=== PATIENT | male | born 1980 | race Caucasian/White ===

== ENCOUNTER 2018-06-12 08:24 | Inpatient (IN) ==
[2018-06-12] MEDS ORDERED: Sod Chloride 0.9% Inj 1,000 ML IV.CONT SCH (09:00)
--- NOTE | 2018-06-12 09:44 | XR ---
EXAM DATE: 06/12/2018 9:29 AM EDT AGE/SEX: 37 years / Male INDICATIONS: . Cough and nauseous. CLINICAL DATA: This is the patient's initial encounter. Patient reports that signs and symptoms have been present for 1 day and indicates a pain score of 0/10. MEDICAL/SURGICAL HISTORY: None. None. COMPARISON: No prior exams available for comparison. FINDINGS: A single AP view of the chest demonstrates the lungs to be symmetrically aerated without evidence of mass, infiltrate or effusion. The cardiomediastinal contours are unremarkable. Osseous structures a re intact. CONCLUSION: No acute intrathoracic disease. Electronically signed by: Sudhakar Valentine MD 06/12/2018 9:42 AM EDT
--- NOTE | 2018-06-12 10:07 | ED ---
HPI General Chief Complaint: Neuro Symptoms/Deficit Stated Complaint: Headache Time Seen by Provider: 06/12/18 08:55 Source: patient and family Mode of arrival: ambulatory Limitations: no limitations History of Present Illness HPI Narrative: The patient is a 37-year-old male with no significant medical history presenting with neurologic symptoms. Patient stated that yesterday at 1 PM he was having difficulty walking and he was stumbling around he had vision loss on his left eye for almost the whole day as well as inability to move his right upper extremity. Patient is a daily alcohol drinker states he was not intoxicated and he does not appear intoxicated today either. Visual symptoms resolved but since this morning she has been having left parietal headache no more dizziness. Also reports weakness on the right upper extremity. In addition he is stating that he is having problems with his speech but he cannot explain. No slurring. Onset (ago): day(s) (since yesterday around 1pm) Timing confirmed by: spouse Location: speech, right arm (weaknes) and other (Headche, Gait disturbance) History of same: No Quality: weak (Right UE) Relieving factors: none Context: sudden onset On Anticoagulants: No Associated symptoms: headaches, vertigo and weakness Treatments Prior to Arrival: none Related Data Home Medications Medication Instructions Recorded Confirmed No Known Home Medications 06/12/18 06/12/18 Allergies Allergy/AdvReac Type Severity Reaction Status Date / Time No Known Allergies Allergy Unverified 06/12/18 08:54 Review of Systems ROS Unobtainable All other systems reviewed negative except as stated in HPI Except as stated in HPI: all other systems reviewed are negative Neurologic Reports abnormal gait, Denies confusion, Reports dizziness, Reports headache(s) , Denies lack of coordination, Reports focal weakness, Reports loss of vision ( transient), Denies memory loss, Denies radicular pain, Denies seizure-like activity, Denies paresthesias and Denies disequilibrium [facility] Social History Social History Substance History: No History of Abuse Second Hand Smoke Exposure: No Smoking Status: Current some day smoker Tobacco Type: Cigarettes Packs Per Day: 0.5 (Patient reports smoking a few cigarettes a day, but only a few days a week, not daily.) Cigarettes Per Day: 10.0 How Often Do You Have a Drink Containing Alcohol: 4 or more times a week Recent Travel in [facility] within the Last 8 Weeks: No Recent Out of Country Travel within the Last 8 Weeks: No Immunization History Tetanus Immunization: Unsure Hx Influenza Vaccine This Season: No Exam HENMT Head: normocephalic and atraumatic Nose: no nasal discharge and no epistaxis Mouth: moist mucous membranes Eyes Sclera: normal sclerae Pupils: PERRL Neck Neck: trachea midline and no JVD Resp Effort & Inspection: no use of accessory muscles Auscultation: clear to auscultation bilaterally Cardio Rate: regular rate Rhythm: regular rhythm Heart Sounds: no murmurs GI Inspection: non-distended Palpation: soft, no hepatosplenomegaly and nontender Skin General: dry skin (warm) Neuro General: alert, awake, oriented x3, gait normal, moves all extremities, normal light touch, pain and propioception, CN's II-XI intact bilaterally, increase sensation to monofilament, absent sensation to monofilament, deep tendon reflexes 2+ bilaterally and not confused Cranial Nerves: CN's II-XI intact bilaterally, PERRL, EOM intact bilaterally and other Speech: speech normal Motor: no pronator drift, no movement abnormalities noted and strength abnormal (reduced on the RUE 4/5) Sensory Exam: no sensory deficits noted Coordination: [id number] test normal, [id number] test normal, Romberg test normal, tandem gait normal and Does not sway with eyes open Extrem General: normal to inspection, no clubbing, no cyanosis and no edema Psych Mood: congruent mood Affect: normal affect Judgment: judgment good Course Initial Documented Vital Signs Temperature 97.6 F 06/12/18 08:30 Pulse Rate 74 06/12/18 08:30 Respiratory Rate 16 06/12/18 08:30 Blood Pressure 139/86 06/12/18 08:30 Pulse Oximetry 96 06/12/18 08:30 Last Documented Vital Signs Temperature 97.8 F 06/15/18 04:00 Pulse Rate 69 06/15/18 04:00 Respiratory Rate 16 06/15/18 04:00 Blood Pressure 110/65 06/15/18 04:00 Pulse Oximetry 99 06/15/18 04:00 Critical Care Time Total Critical Care Time: 45 Attestation: Aggregate critical care time was 45 minutes. Time to perform other separately billable procedures was not included in the critical care time. My time did not include minutes spent treating any other patients simultaneously or on activities that did not directly contribute to the patient's treatment. The services I provided to this patient were to treat and/or prevent clinically significant deterioration that could result in: Permanent disability and I provided critical care services requiring my management, as noted below: Chart data review, documentation time, medication orders and management, vital sign assessments/reviewing monitor data, ordering and reviewing lab tests, ordering and interpreting/reviewing x-rays and diagnostic studies, care of the patient and discussion of the patient with the admitting physicians. NIH Stroke Scale NIHSS Time Completed NIHSS Time Completed: 08:58 NIH Stroke Scale Level of Consciousness: 0-Alert Orientation Questions: 0-Answers both correct Responds to Commands: 0-Both tasks correct Gaze Eye Movement: 0-Horizontal movement WNL Visual Long: 0-No visual field defect Facial Movement: 0-Normal Motor Functions Arm LEFT: 0-No drift Motor Functions Arm RIGHT: 0-No drift Motor Functions Leg LEFT: 0-No drift Motor Functions Leg RIGHT: 0-No drift Limb Ataxia: 0-No ataxia Sensory Loss: 0-No sensory loss Best Language: 0-Normal Articulation: 0-Normal Extinction or Inattention Sensory: 0-Absent Total: 0 Medical Decision Making MDM Narrative Medical decision making narrative: Patient with left IC a dissection started and heparin drip. Vascular surgery was consulted. No focal neurologic deficits at this time but he did have weakness of the right upper extremity and left visual loss yesterday. Otherwise labs unremarkable. More dynamically stable admitted for neurologic evaluation as well as vascular. Head MRI was also obtained and reveal several punctate areas of restricted diffusion throughout the left cerebral hemispheres suggestive of acute focal areas of infarction. Prominent bilateral ventricles for patient's age as well as demyelination likely ischemic. Lab Data Lab results reviewed: Yes I reviewed the patient's lab results. Result diagrams: 06/15/18 03:57 06/15/18 03:57 Lab Results 06/12/18 06/12/18 06/12/18 Range/Units 09:00 09:00 09:05 WBC (4.0-11.0) th/mm3 RBC (4.50-5.90) mil/mm3 Hgb (13.0-17.0) gm/dL Hct (39.0-51.0) % MCV (80.0-100.0) fL MCH (27.0-34.0) pg MCHC (32.0-36.0) % RDW (11.6-17.2) % Plt Count (150-450) th/mm3 MPV (7.0-11.0) fL PT 10.1 (9.8-11.6) sec INR 1.0 Ratio APTT 27.4 (24.3-30.1) sec Sodium 138 (136-145) meq/L Potassium 3.7 (3.5-5.1) meq/L Chloride 105 (98-107) meq/L Carbon Dioxide 26.9 (21.0-32.0) meq/L Anion Gap 6 (5-15) meq/L BUN 14 (7-18) mg/dL Creatinine 0.98 (0.60-1.30) mg/dL Estimated GFR 86 L (>89) mL/min POC Glucose (68-110) mg/dl Random Glucose 89 (74-106) mg/dL Hemoglobin A1c (4.3-6.0) % Calcium 8.9 (8.5-10.1) mg/dL Total Creatine Kinase 174 (39-308) U/L CK-MB (CK-2) 1.1 (0.5-3.6) ng/mL Troponin I Less than 0.02 L (0.02-0.05) ng/mL Triglycerides (42-150) mg/dL Cholesterol (120-200) mg/dL LDL Cholesterol, Calc (0-99) mg/dL HDL Cholesterol (40.0-60.0) mg/dL Cholesterol/HDL Ratio Ratio Blood Type O Positive Blood Type Recheck Required Antibody Screen Negative 06/12/18 06/12/18 06/12/18 Range/Units 14:42 14:42 16:57 WBC 7.7 (4.0-11.0) th/mm3 RBC 5.10 (4.50-5.90) mil/mm3 Hgb 14.7 (13.0-17.0) gm/dL Hct 43.8 (39.0-51.0) % MCV 86.0 (80.0-100.0) fL MCH 28.8 (27.0-34.0) pg MCHC 33.5 (32.0-36.0) % RDW 13.7 (11.6-17.2) % Plt Count 240 (150-450) th/mm3 MPV 8.5 (7.0-11.0) fL PT 10.8 (9.8-11.6) sec INR 1.1 Ratio APTT (24.3-30.1) sec Sodium (136-145) meq/L Potassium (3.5-5.1) meq/L Chloride (98-107) meq/L Carbon Dioxide (21.0-32.0) meq/L Anion Gap (5-15) meq/L BUN (7-18) mg/dL Creatinine (0.60-1.30) mg/dL Estimated GFR (>89) mL/min POC Glucose 74 (68-110) mg/dl Random Glucose (74-106) mg/dL Hemoglobin A1c (4.3-6.0) % Calcium (8.5-10.1) mg/dL Total Creatine Kinase (39-308) U/L CK-MB (CK-2) (0.5-3.6) ng/mL Troponin I (0.02-0.05) ng/mL Triglycerides (42-150) mg/dL Cholesterol (120-200) mg/dL LDL Cholesterol, Calc (0-99) mg/dL HDL Cholesterol (40.0-60.0) mg/dL Cholesterol/HDL Ratio Ratio Blood Type Blood Type Recheck Antibody Screen 06/12/18 06/12/18 06/13/18 Range/Units 21:10 21:16 03:12 WBC 7.2 (4.0-11.0) th/mm3 RBC 5.14 (4.50-5.90) mil/mm3 Hgb 14.7 (13.0-17.0) gm/dL Hct 43.6 (39.0-51.0) % MCV 84.8 (80.0-100.0) fL MCH 28.5 (27.0-34.0) pg MCHC 33.6 (32.0-36.0) % RDW 13.8 (11.6-17.2) % Plt Count 222 (150-450) th/mm3 MPV 8.0 (7.0-11.0) fL PT (9.8-11.6) sec INR Ratio APTT 43.7 H D (24.3-30.1) sec Sodium (136-145) meq/L Potassium (3.5-5.1) meq/L Chloride (98-107) meq/L Carbon Dioxide (21.0-32.0) meq/L Anion Gap (5-15) meq/L BUN (7-18) mg/dL Creatinine (0.60-1.30) mg/dL Estimated GFR (>89) mL/min POC Glucose 95 (68-110) mg/dl Random Glucose (74-106) mg/dL Hemoglobin A1c (4.3-6.0) % Calcium (8.5-10.1) mg/dL Total Creatine Kinase (39-308) U/L CK-MB (CK-2) (0.5-3.6) ng/mL Troponin I (0.02-0.05) ng/mL Triglycerides (42-150) mg/dL Cholesterol (120-200) mg/dL LDL Cholesterol, Calc (0-99) mg/dL HDL Cholesterol (40.0-60.0) mg/dL Cholesterol/HDL Ratio Ratio Blood Type Blood Type Recheck Antibody Screen 06/13/18 06/13/18 06/13/18 Range/Units 03:12 03:12 03:12 WBC (4.0-11.0) th/mm3 RBC (4.50-5.90) mil/mm3 Hgb (13.0-17.0) gm/dL Hct (39.0-51.0) % MCV (80.0-100.0) fL MCH (27.0-34.0) pg MCHC (32.0-36.0) % RDW (11.6-17.2) % Plt Count (150-450) th/mm3 MPV (7.0-11.0) fL PT 10.4 (9.8-11.6) sec INR 1.0 Ratio APTT 50.6 H (24.3-30.1) sec Sodium 139 (136-145) meq/L Potassium 4.0 (3.5-5.1) meq/L Chloride 104 (98-107) meq/L Carbon Dioxide 27.8 (21.0-32.0) meq/L Anion Gap 7 (5-15) meq/L BUN 11 (7-18) mg/dL Creatinine 0.93 (0.60-1.30) mg/dL Estimated GFR Greater than 89 (>89) mL/min POC Glucose (68-110) mg/dl Random Glucose 97 (74-106) mg/dL Hemoglobin A1c 5.5 (4.3-6.0) % Calcium 8.6 (8.5-10.1) mg/dL Total Creatine Kinase (39-308) U/L CK-MB (CK-2) (0.5-3.6) ng/mL Troponin I (0.02-0.05) ng/mL Triglycerides 113 (42-150) mg/dL Cholesterol 189 (120-200) mg/dL LDL Cholesterol, Calc 105 H (0-99) mg/dL HDL Cholesterol 61.6 H (40.0-60.0) mg/dL Cholesterol/HDL Ratio 3.06 Ratio Blood Type Blood Type Recheck Antibody Screen 06/13/18 06/13/18 06/13/18 Range/Units 07:28 11:14 16:55 WBC (4.0-11.0) th/mm3 RBC (4.50-5.90) mil/mm3 Hgb (13.0-17.0) gm/dL Hct (39.0-51.0) % MCV (80.0-100.0) fL MCH (27.0-34.0) pg MCHC (32.0-36.0) % RDW (11.6-17.2) % Plt Count (150-450) th/mm3 MPV (7.0-11.0) fL PT (9.8-11.6) sec INR Ratio APTT (24.3-30.1) sec Sodium (136-145) meq/L Potassium (3.5-5.1) meq/L Chloride (98-107) meq/L Carbon Dioxide (21.0-32.0) meq/L Anion Gap (5-15) meq/L BUN (7-18) mg/dL Creatinine (0.60-1.30) mg/dL Estimated GFR (>89) mL/min POC Glucose 92 85 86 (68-110) mg/dl Random Glucose (74-106) mg/dL Hemoglobin A1c (4.3-6.0) % Calcium (8.5-10.1) mg/dL Total Creatine Kinase (39-308) U/L CK-MB (CK-2) (0.5-3.6) ng/mL Troponin I (0.02-0.05) ng/mL Triglycerides (42-150) mg/dL Cholesterol (120-200) mg/dL LDL Cholesterol, Calc (0-99) mg/dL HDL Cholesterol (40.0-60.0) mg/dL Cholesterol/HDL Ratio Ratio Blood Type Blood Type Recheck Antibody Screen 06/13/18 06/14/18 06/14/18 Range/Units 19:54 05:54 05:54 WBC 7.0 (4.0-11.0) th/mm3 RBC 5.32 (4.50-5.90) mil/mm3 Hgb 15.2 (13.0-17.0) gm/dL Hct 45.5 (39.0-51.0) % MCV 85.5 (80.0-100.0) fL MCH 28.5 (27.0-34.0) pg MCHC 33.3 (32.0-36.0) % RDW 14.2 (11.6-17.2) % Plt Count 241 (150-450) th/mm3 MPV 8.6 (7.0-11.0) fL PT (9.8-11.6) sec INR Ratio APTT (24.3-30.1) sec Sodium 141 (136-145) meq/L Potassium 3.4 L (3.5-5.1) meq/L Chloride 104 (98-107) meq/L Carbon Dioxide 25.9 (21.0-32.0) meq/L Anion Gap 11 (5-15) meq/L BUN 12 (7-18) mg/dL Creatinine 1.04 (0.60-1.30) mg/dL Estimated GFR 80 L (>89) mL/min POC Glucose 88 (68-110) mg/dl Random Glucose 90 (74-106) mg/dL Hemoglobin A1c (4.3-6.0) % Calcium 9.1 (8.5-10.1) mg/dL Total Creatine Kinase (39-308) U/L CK-MB (CK-2) (0.5-3.6) ng/mL Troponin I (0.02-0.05) ng/mL Triglycerides (42-150) mg/dL Cholesterol (120-200) mg/dL LDL Cholesterol, Calc (0-99) mg/dL HDL Cholesterol (40.0-60.0) mg/dL Cholesterol/HDL Ratio Ratio Blood Type Blood Type Recheck Antibody Screen 06/14/18 06/14/18 06/14/18 Range/Units 05:54 07:58 20:27 WBC (4.0-11.0) th/mm3 RBC (4.50-5.90) mil/mm3 Hgb (13.0-17.0) gm/dL Hct (39.0-51.0) % MCV (80.0-100.0) fL MCH (27.0-34.0) pg MCHC (32.0-36.0) % RDW (11.6-17.2) % Plt Count (150-450) th/mm3 MPV (7.0-11.0) fL PT 11.4 (9.8-11.6) sec INR 1.1 Ratio APTT 49.5 H (24.3-30.1) sec Sodium (136-145) meq/L Potassium (3.5-5.1) meq/L Chloride (98-107) meq/L Carbon Dioxide (21.0-32.0) meq/L Anion Gap (5-15) meq/L BUN (7-18) mg/dL Creatinine (0.60-1.30) mg/dL Estimated GFR (>89) mL/min POC Glucose 97 122 H (68-110) mg/dl Random Glucose (74-106) mg/dL Hemoglobin A1c (4.3-6.0) % Calcium (8.5-10.1) mg/dL Total Creatine Kinase (39-308) U/L CK-MB (CK-2) (0.5-3.6) ng/mL Troponin I (0.02-0.05) ng/mL Triglycerides (42-150) mg/dL Cholesterol (120-200) mg/dL LDL Cholesterol, Calc (0-99) mg/dL HDL Cholesterol (40.0-60.0) mg/dL Cholesterol/HDL Ratio Ratio Blood Type Blood Type Recheck Antibody Screen 06/15/18 06/15/18 06/15/18 Range/Units 03:57 03:57 03:57 WBC 7.4 (4.0-11.0) th/mm3 RBC 5.14 (4.50-5.90) mil/mm3 Hgb 14.6 (13.0-17.0) gm/dL Hct 43.8 (39.0-51.0) % MCV 85.2 (80.0-100.0) fL MCH 28.4 (27.0-34.0) pg MCHC 33.3 (32.0-36.0) % RDW 13.8 (11.6-17.2) % Plt Count 249 (150-450) th/mm3 MPV 8.1 (7.0-11.0) fL PT 12.1 H (9.8-11.6) sec INR 1.2 Ratio APTT 48.9 H (24.3-30.1) sec Sodium 141 (136-145) meq/L Potassium 3.5 (3.5-5.1) meq/L Chloride 105 (98-107) meq/L Carbon Dioxide 26.3 (21.0-32.0) meq/L Anion Gap 10 (5-15) meq/L BUN 12 (7-18) mg/dL Creatinine 0.96 (0.60-1.30) mg/dL Estimated GFR 88 L (>89) mL/min POC Glucose (68-110) mg/dl Random Glucose 88 (74-106) mg/dL Hemoglobin A1c (4.3-6.0) % Calcium 8.8 (8.5-10.1) mg/dL Total Creatine Kinase (39-308) U/L CK-MB (CK-2) (0.5-3.6) ng/mL Troponin I (0.02-0.05) ng/mL Triglycerides (42-150) mg/dL Cholesterol (120-200) mg/dL LDL Cholesterol, Calc (0-99) mg/dL HDL Cholesterol (40.0-60.0) mg/dL Cholesterol/HDL Ratio Ratio Blood Type Blood Type Recheck Antibody Screen Imaging Data Radiologist's impression: Chest X-Ray 06/12/18 08:55 CONCLUSION: No acute intrathoracic disease. Head CT 06/12/18 08:55 CONCLUSION: 1. Mild diffuse ventriculomegaly out of proportion to brain density. Head CTA 06/12/18 08:55 CONCLUSION: 1. 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 2. Otherwise unremarkable CTA of the brain. Neck CTA 06/12/18 08:57 CONCLUSION: 1. There is a dissection involving the mid portion of the left internal carotid artery with a subintimal hematoma causing compression of the lumen for approximately 2 cm in length. There is reconstitution of the distal left internal carotid artery just below the base of the skull. 2. The rest the examination is within normal limits for patient's age. Head MRI 06/12/18 12:17 CONCLUSION: 1. There are several punctate areas of restricted diffusion throughout the left cerebral hemisphere characteristic for focal areas of acute infarction. 2. The ventricles are prominent bilaterally. There is also evidence of ischemic demyelinization bilaterally. ECG Data Attestation: I personally reviewed and interpreted this ECG as follows: Interpretation: EKG obtained at 8:59 AM revealed normal sinus rhythm with ventricular rate of 78 bpm [place] and QT intervals within normal limits normal axis Discharge Plan Discharge Disposition Patient Disposition: 30 Still Patient Discharge Condition Condition: Critical Discharge Details Diagnosis: Internal carotid artery dissection, Acute cerebrovascular accident Physicians Team ED Provider: Jeremie Singh Primary Care Provider: Primary Care Farzana Lopez Attending Provider: Kristin Boyd Other Providers: Kait Laughlin ; Maynor Vinson ; Gene Luz Discharge Interventions Interventions: ED Discharge Assessment Last Done: 06/12/18 15:58 Vital Signs Last Done: 06/12/18 12:35 Status ED Status: Left Department Discharge Information Discharge Date/Time: 06/12/18 15:50
[2018-06-12 10:09] LABS: Activated Partial Thrombo Time 27.4 sec (24.3-30.1); Prothrombin Time 10.1 sec (9.8-11.6)
[2018-06-12 10:20] LABS: Anion Gap 6 meq/L (5-15); Blood Urea Nitrogen 14 mg/dL (7-18); Calcium 8.9 mg/dL (8.5-10.1); Carbon Dioxide 26.9 meq/L (21.0-32.0); Chloride 105 meq/L (98-107); Glomerular Filtration Rate 86 mL/min (>89); Glucose,Random 89 mg/dL (74-106); Potassium 3.7 meq/L (3.5-5.1); Sodium 138 meq/L (136-145)
[2018-06-12 10:24] LABS: Creatine Kinase 174 U/L (39-308)
[2018-06-12 10:36] LABS: Creatine Kinase MB 1.1 ng/mL (0.5-3.6)
--- NOTE | 2018-06-12 10:58 | CT ---
EXAM DATE: 06/12/2018 10:50 AM EDT AGE/SEX: 37 years / Male INDICATIONS: Right side weakness and facial droop, slurred speech. CLINICAL DATA: This is the patient's initial encounter. Patient reports that signs and symptoms have been present for 1 day and indicates a pain score of 3/10. MEDICAL/SURGICAL HISTORY: None. None. RADIATION DOSE: 56.35 CTDI (mGy) COMPARISON: No prior exams available for comparison. TECHNIQUE: CT of the head without contrast. Using automated exposure control and adjustment of the mA and/or kV according to patient size, radiation dose was kept as low as reasonably achievable to ob tain optimal diagnostic quality images. DICOM format image data is available electronically for revi ew and comparison. FINDINGS: Cerebrum: Diffuse ventriculomegaly out of proportion to brain density. No evidence of midline shift, mass lesion, hemorrhage or acute infarction. No extraaxial fluid collections are seen. Posterior Fossa: The cerebellum and brainstem are intact. The 4th ventricle is midline. The cerebe llopontine angle is unremarkable. Extracranial: The visualized portion of the orbits is intact. Skull: The calvaria is intact. No evidence of skull fracture. CONCLUSION: 1. Mild diffuse ventriculomegaly out of proportion to brain density. Electronically signed by: Gene Banks MD 06/12/2018 10:56 AM EDT
--- NOTE | 2018-06-12 11:43 | CT ---
EXAM DATE: 06/12/2018 11:34 AM EDT AGE/SEX: 37 years / Male INDICATIONS: Right side weakness and facial droop, slurred speech. CLINICAL DATA: This is the patient's initial encounter. Patient reports that signs and symptoms have been present for 1 day and indicates a pain score of 4/10. MEDICAL/SURGICAL HISTORY: None. None. RADIATION DOSE: 10.51 CTDI (mGy) ; Combined studies COMPARISON: [facility] – [place], [place] HEAD W/O CONTRAST, 06/12/2018. . TECHNIQUE: Volumetric scanning was performed using a multi-row detector CT scanner during bolus infu cassandra of 75 ml Omnipaque 350 (iohexol) nonionic water-soluble contrast as a cumulative dose for multi ple exams. The data was post processed with a variety of visualization algorithms including full vo lume maximum intensity projection, multi-planar sliding thin slab reformation, curved planar reformat ion, and surface rendering techniques. Using automated exposure control and adjustment of the mA and /or kV according to patient size, radiation dose was kept as low as reasonably achievable to obtain o ptimal diagnostic quality images. DICOM format image data is available electronically for review and comparison. FINDINGS: There is excellent visualization of the major intracranial arteries out to the second-order branch ve ssels. There is no evidence for aneurysm, vessel truncation or stenosis, and no evidence for vascula r malformation. 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 CONCLUSION: 1. 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 2. Otherwise unremarkable CTA of the brain. Electronically signed by: Sudhakar Valentine MD 06/12/2018 11:42 AM EDT
[2018-06-12] MEDS ORDERED: Heparin 10,000 UNITS/10 ML Vial (for IV use) IV.PUSH STA (11:57)
--- NOTE | 2018-06-12 11:58 | CT ---
EXAM DATE: 06/12/2018 11:15 AM EDT AGE/SEX: 37 years / Male INDICATIONS: Right side weakness and facial droop, slurred speech. CLINICAL DATA: This is the patient's initial encounter. Patient reports that signs and symptoms have been present for 1 day and indicates a pain score of 4/10. MEDICAL/SURGICAL HISTORY: None. None. RADIATION DOSE: 10.51 CTDI (mGy) ; Combined studies COMPARISON: [facility], CTA HEAD W CONTRAST W 3D, 06/12/2018. . TECHNIQUE: Volumetric scanning was performed using a multirow detector CT scanner during bolus infus ion of 75 ml Omnipaque 350 (iohexol) nonionic water-soluble contrast as a cumulative dose for multip le exams. The data was postprocessed with a variety of visualization algorithms including full-volu me maximum intensity projection, multiplanar sliding thin-slab reformation, curved-planar reformation , and surface-rendering techniques. Using automated exposure control and adjustment of the mA and/or kV according to patient size, radiation dose was kept as low as reasonably achievable to obtain opti mal diagnostic quality images. DICOM format image data is available electronically for review and co mparison. FINDINGS: Aortic Arch: There is a three-vessel origin of the great vessels from the aorta. No evidence of ost ial narrowing Right Carotid: The common carotid artery is intact. The carotid bulb has a normal configuration wit hout ulceration or narrowing. The internal carotid artery lumen is smooth without stenosis. The ext ernal carotid artery is intact. Left Carotid: The common carotid artery is intact. The carotid bulb has a normal configuration with out ulceration or narrowing.. The proximal left internal carotid artery is patent. However, there is an intimal dissection involving the midportion of the left internal carotid artery for approximately 2 cm. There is a subintimal hematoma causing compression of the lumen. There is distal flow in a calli nstituted distal left internal carotid artery just before the base of the skull. Vertebrals: The vertebral arteries have a symmetric diameter. No stenotic lesions are seen. The findings were called immediately by telephone to the ER physician in the C Pod. Elevated flow velocities and ICA/CCA ratios have been found to correlate with increased degrees of ve ssel stenosis, calculated as percentage of diameter relative to a normal segment of distal ICA/CCA. CONCLUSION: 1. There is a dissection involving the mid portion of the left internal carotid artery with a subint imal hematoma causing compression of the lumen for approximately 2 cm in length. There is reconstitut ion of the distal left internal carotid artery just below the base of the skull. 2. The rest the examination is within normal limits for patient's age. Electronically signed by: Sudhakar Valentine MD 06/12/2018 11:56 AM EDT
--- NOTE | 2018-06-12 13:21 | MR ---
EXAM DATE: 06/12/2018 1:13 PM EDT AGE/SEX: 37 years / Male INDICATIONS: CVA. Left vision loss. Right arm weakness. CLINICAL DATA: This is the patient's initial encounter. Patient reports that signs and symptoms have been present for 1 day and indicates a pain score of 0/10. MEDICAL/SURGICAL HISTORY: None. None. COMPARISON: [facility] [place], CT HEAD W/O CONTRAST, 06/12/2018. . TECHNIQUE: Multiplanar, multisequence examination of the brain was performed without and with 8 ml Ga davist (gadobutrol) contrast as a single exam dose. FINDINGS: Cerebrum: The ventricles are prominent for age. No evidence of midline shift, mass lesion, hemorrha ge.. No extraaxial fluid collections are seen. The pituitary gland and suprasellar cistern are norm al in configuration. White Matter: There are some high signal spots in the white matter tracts bilaterally. Posterior Fossa: The cerebellum and brainstem are intact. The 4th ventricle is midline. The cerebel lopontine angle is unremarkable. The cerebellar tonsils are normal in position. Diffusion Imaging: Several punctate areas of increased signal consistent with restricted diffusion a re noted throughout the left cerebral hemisphere. The right cerebral hemisphere on the diffusion-weig hted images are unremarkable. Extracranial: The visualized portions of the orbits and paranasal sinuses are unremarkable. Post Contrast: No abnormal areas of parenchymal or dural enhancement. No evidence of blood-brain ba rrier breakdown. No enhancing mass occupying lesions. CONCLUSION: 1. There are several punctate areas of restricted diffusion throughout the left cerebral hemisphere characteristic for focal areas of acute infarction. 2. The ventricles are prominent bilaterally. There is also evidence of ischemic demyelinization bila terally. Electronically signed by: Sudhakar Valentine MD 06/12/2018 1:20 PM EDT
[2018-06-12] MEDS ORDERED: Sodium Phosphate Inj 30 MMOL in Sodium Chlor 0.9% Inj 250 ML IV.SIG PRN (13:40)
[2018-06-12] MEDS ORDERED: Labetalol HCl Inj 100 MG/20 ML Vial IV.PUSH PRN (13:40)
[2018-06-12] MEDS ORDERED: Potassium Phosphate 500 MG Soluble Tablet PO PRN ×2 (13:40)
[2018-06-12] MEDS ORDERED: Magnesium Oxide 400 MG Tablet PO PRN (13:40)
[2018-06-12] MEDS ORDERED: Magnesium Sulfate Inj 4 GM in Sodium Chlor 0.9% Inj 92 ML IV.SIG PRN (13:40)
[2018-06-12] MEDS ORDERED: Potassium Chloride 25 MEQ Effervescent Tablet PO PRN (13:40)
[2018-06-12] MEDS ORDERED: Potassium Chlor 20 mEq Premix 20 MEQ/100 ML PIGGYBACK IV.SIG PRN ×2 (13:40)
[2018-06-12] MEDS ORDERED: Bisacodyl 10 MG Supp RECTAL PRN (13:40)
[2018-06-12] MEDS ORDERED: Potassium Chlor 40 mEq Premix 40 MEQ/100 ML PIGGYBACK IV.SIG PRN ×2 (13:40)
[2018-06-12] MEDS ORDERED: Dextrose 50% in Water 50 ML Vial IV.PUSH PRN (13:40)
[2018-06-12] MEDS ORDERED: Magnesium Sulfate Inj 2 GM in Sodium Chlor 0.9% Inj 96 ML IV.SIG PRN (13:40)
[2018-06-12] MEDS ORDERED: Potassium Phosphate Inj 30 MMOL in Sodium Chlor 0.9% Inj 250 ML IV.SIG PRN (13:40)
--- NOTE | 2018-06-12 13:47 | P.HPCC ---
History of Present Illness Service: Critical Care Medicine Primary Care Physician: No Primary Care Physician Chief Complaint: Vision changes History of Present Illness: This is a 37-year-old male with no past medical history who was traveling on vacation down from [place] when yesterday he had sudden onset visual field deficits and could not see out of his left eye. He does state that approximately 2 days earlier he had significant alcohol intake with friends, and thought this was related to a hangover. He drinks 6-8 glasses of water and felt that his vision changes improved. Today he had persistent intermittent weakness over his right side of his body and was concerned so he came in for evaluation. CTA head neck demonstrates a left-sided spontaneous internal carotid artery dissection, and MRI brain demonstrates multiple tiny embolic appearing infarcts in the left cortical hemisphere. Currently, the patient denies any symptoms. He states his vision changes have completely resolved. He denies any weakness, sensory changes, imbalance, dizziness, syncope. He has never had anything like this. He denies any family history of stroke. Review of systems is otherwise unremarkable. Of note, he does not work out or lift weights, has not had any recent trauma to the neck or had any other strenuous activity. Inpatient Certification: I certify that the inpatient services were ordered in accordance with Medicare regulations governing the order. This includes certification that hospital inpatient services are reasonable and necessary and in the case of services not specified as inpatient-only under 42 CFR 419.22(n), that they are appropriately provided as inpatient services in accordance to with the 2-midnight benchmark under 43 CFR 412.3(e) Estimated Total Length of Stay (Days): 7 Plans for Post Hospital Care: Not yet determined Review of Systems All other systems reviewed negative except as stated in HPI [facility] - History History Provided By: Patient - Medical / Surgical Hx Neg / Unobtainable Medical Problems Denied: Yes Surgical History: No Previous Surgery - Tobacco History Second Hand Smoke Exposure: No Tobacco Use In Past 30 Days: Yes Smoking Status: Current some day smoker Tobacco Type: Cigarettes Packs Per Day: 0.5 (Patient reports smoking a few cigarettes a day, but only a few days a week, not daily.) - Alcohol History How Often Do You Have a Drink Containing Alcohol: 4 or more times a week - Substance Use History Substance History: No History of Abuse - Travel History Recent Travel in the [facility] Within the Last 8 Weeks: No Recent Travel Out of the Country Within the Last 8 Weeks: No - Immunization History Tetanus Immunization: Unsure Hx Influenza Vaccine This Season: No Medications and Allergies Active Medications: Active Medications Sodium Chloride (Ns Inj) 1,000 mls @ 70 mls/hr IV.CONT .[id number] ILEANA Stop: 06/12/18 23:17 Last Admin: 06/12/18 09:10 Dose: 70 mls/hr Heparin Sodium/Dextrose (Heparin/D5w 25,000 U/250 Ml) 25,000 unit in 250 mls @ 10 mls/hr IV.CONT TITRATE PRN; Protocol PRN Reason: Per Protocol Sodium Chloride (Ns Flush) 2 ml IV.FLUSH PRN PRN PRN Reason: FLUSH AFTER USING IV ACCESS Allergies Allergy/AdvReac Type Severity Reaction Status Date / Time No Known Allergies Allergy Unverified 06/12/18 08:54 Home Medications Medication Instructions Recorded Confirmed Type No Known Home Medications 06/12/18 06/12/18 History Results - Labs CBC & Chem 7: 06/12/18 14:42 06/12/18 09:00 Labs: BMP 06/12/18 09:00 Sodium 138 Potassium 3.7 Chloride 105 Carbon Dioxide 26.9 BUN 14 Creatinine 0.98 Calcium 8.9 Cardiac Enzymes 06/12/18 Range/Units 09:00 Total Creatine Kinase 174 (39-308) U/L CK-MB (CK-2) 1.1 (0.5-3.6) ng/mL Troponin I Less than 0.02 L (0.02-0.05) ng/mL - Imaging Impressions Chest X-Ray 06/12/18 08:55 CONCLUSION: No acute intrathoracic disease. Head CT 06/12/18 08:55 CONCLUSION: 1. Mild diffuse ventriculomegaly out of proportion to brain density. Head CTA 06/12/18 08:55 CONCLUSION: 1. 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 2. Otherwise unremarkable CTA of the brain. Neck CTA 06/12/18 08:57 CONCLUSION: 1. There is a dissection involving the mid portion of the left internal carotid artery with a subintimal hematoma causing compression of the lumen for approximately 2 cm in length. There is reconstitution of the distal left internal carotid artery just below the base of the skull. 2. The rest the examination is within normal limits for patient's age. Head MRI 06/12/18 12:17 CONCLUSION: 1. There are several punctate areas of restricted diffusion throughout the left cerebral hemisphere characteristic for focal areas of acute infarction. 2. The ventricles are prominent bilaterally. There is also evidence of ischemic demyelinization bilaterally. Exam Vital signs: Vital Signs 06/12/18 08:30 06/12/18 08:52 06/12/18 09:01 Temperature 36.4 C Pulse Rate 74 120 H Respiratory Rate 16 18 Blood Pressure 139/86 163/100 H Pulse Oximetry 96 95 96 06/12/18 11:57 06/12/18 12:35 Temperature Pulse Rate 87 Respiratory Rate 18 Blood Pressure 130/76 Pulse Oximetry 97 96 Intake & Output 06/11/18 06/12/18 06/12/18 18:59 06:59 18:59 Weight 81.647 kg Narrative: GENERAL: Young male, sitting in bed, no acute distress HEENT: Normocephalic. Atraumatic. Pupils equal, round, reactive, conjugate. Mucous membranes are moist NECK: Trachea is midline. There is no JVD. No evidence of trauma or bruising, ecchymosis to the neck. CHEST: Equal chest rise. Unlabored. Room air. CARDIOVASCULAR: Normal rate. Regular rhythm. Sinus. Systolic blood pressure 132 on my evaluation ABDOMEN: Soft, nontender, nondistended. No guarding. MUSCULOSKELETAL: Pulses 2+. No peripheral edema. NEUROLOGICAL: RASS 0. GCS 15. Follows commands in all 4 extremities. Muscular skeletal strength 5/5 in all 4 extremities. Sensation grossly intact. Cranial nerves II through XII grossly intact. Pupils equal, round, reactive to light and accommodation. Extraocular muscles intact. Visual field grossly intact. Caprini VTE Risk Assessment Caprini VTE Risk Assessment: Moderate/High Risk (score >= 2) Caprini Risk Assessment Model: Point Value = 1 Point Value = 2 Point Value = 3 Point Value = 5 Age 41-60 Minor surgery BMI > 25 kg/m2 Swollen legs Varicose veins or History of unexplained or recurrent spontaneous Oral contraceptives or hormone replacement Sepsis (< 1 month) Serious lung disease, including pneumonia (< 1 month) Abnormal pulmonary function Acute myocardial infarction Congestive heart failure (< 1 month) History of inflammatory bowel disease Medical patient at bed rest Age 61-74 Arthroscopic surgery Major open surgery (> 45 min) Laparoscopic surgery (> 45 min) Malignancy Confined to bed (> 72 hours) Immobilizing plaster cast Central venous access Age >= 75 History of VTE Family history of VTE Factor V Leiden Prothrombin [id number] Lupus anticoagulant Anticardiolipin antibodies Elevated serum homocysteine Heparin-induced thrombocytopenia Other congenital or acquired thrombophilia Stroke (< 1 month) Elective arthroplasty Hip, pelvis, or leg fracture Acute spinal cord injury (< 1 month) Prophylaxis Regimen: Total Risk Factor Score Risk Level Prophylaxis Regimen 0-1 Low Early ambulation 2 Moderate Order ONE of the following: *Sequential Compression Device (SCD) *Heparin 5000 units SQ BID 3-4 Higher Order ONE of the following medications: *Heparin 5000 units SQ TID *Enoxaparin/Lovenox 40 mg SQ daily (WT < 150 kg, CrCl > 30 mL/min) *Enoxaparin/Lovenox 30 mg SQ daily (WT < 150 kg, CrCl > 10-29 mL/min) *Enoxaparin/Lovenox 30 mg SQ BID (WT < 150 kg, CrCl > 30 mL/min) AND/OR *Sequential Compression Device (SCD) 5 or more Highest Order ONE of the following medications: *Heparin 5000 units SQ TID (Preferred with Epidurals) *Enoxaparin/Lovenox 40 mg SQ daily (WT < 150 kg, CrCl > 30 mL/min) *Enoxaparin/Lovenox 30 mg SQ daily (WT < 150 kg, CrCl > 10-29 mL/min) *Enoxaparin/Lovenox 30 mg SQ BID (WT < 150 kg, CrCl > 30 mL/min) AND *Sequential Compression Device (SCD) Assessment and Plan - Assessment and Plan Plan: Assessment: 37-year-old male with an unremarkable past medical history, with risk factors positive for tobacco use, who presents with 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 Admit to ICU for very close monitoring. He is a very high risk for further strokes. We will anticoagulate. Acute spontaneous left ICA dissection - heparin drip - vascular surgery consultation to follow along, but non-operative management is recommended. - frequent neuro checks - goal sbp < 140 - prn labetalol - start coumadin today per Dr. Pryor. Acute CVA - 2d echo - stroke navigator consult - neurology consult - lipids - a1c -PT/OT/ST - advance diet after bedside swallow eval - anticoagulation - mivf admit to ICU for close monitoring. pepcid SCDs
[2018-06-12] MEDS: Heparin Drip 25,000 UNIT/250 ML BAG IV.CONT PRN (13:59)
--- NOTE | 2018-06-12 14:32 | ECG ---
Date Performed: 06/12/2018 Time Performed: 08:59:43 PTAGE: 37 years EKG: Sinus rhythm WITH SINUS ARRHYTHMIA NORMAL ECG NO PREVIOUS TRACING DOCTOR: Raffi Kaur Interpretating Date/Time 06/12/2018 14:32:15
[2018-06-12] MEDS ORDERED: Gadobutrol PF 10 MMOL/10 ML Vial (for RAD) IV.SIG ONE (15:40)
[2018-06-12 15:56] LABS: Hematocrit 43.8 % (39.0-51.0); Hemoglobin 14.7 gm/dL (13.0-17.0); Mean Corpuscular HGB Conc 33.5 % (32.0-36.0); Mean Corpuscular Hemoglobin 28.8 pg (27.0-34.0); Mean Platelet Volume 8.5 fL (7.0-11.0); Platelet Count 240 th/mm3 (150-450); Red Cell Distribution Width 13.7 % (11.6-17.2); White Blood Count 7.7 th/mm3 (4.0-11.0)
[2018-06-12 16:03] LABS: INR 1.1 Ratio; Prothrombin Time 10.8 sec (9.8-11.6)
--- NOTE | 2018-06-12 16:43 | ECHRPT ---
Indication: CVA/TIA CONCLUSIONS The left ventricular systolic function is normal with an estimated ejection fraction in the range of 60-65%. Trace mitral valve regurgitation. There is trace tricuspid valve regurgitation. BP: / HR: Rhythm: Sinus MEASUREMENTS (Male / Female) Normal Values Technical Quality:Good 2D ECHO LV Diastolic Diameter PLAX 4.7 cm 4.2 - 5.9 / 3.9 - 5.3 cm LV Systolic Diameter PLAX 3.2 cm IVS Diastolic Thickness 0.9 cm 0.6 - 1.0 / 0.6 - 0.9 cm LVPW Diastolic Thickness 0.9 cm 0.6 - 1.0 / 0.6 - 0.9 cm LV Relative Wall Thickness 0.4 RV Internal Dim ED PLAX 2.8 cm LVOT Diameter 2.0 cm LA Systolic Diameter LX 3.4 cm 3.0 - 4.0 / 2.7 - 3.8 cm LV Ejection Fraction MOD 4C 63.8 % LV Ejection Fraction 4C AL 65.9 % M-MODE Aortic Root Diameter MM 2.5 cm AV Cusp Separation MM 1.9 cm DOPPLER AV Peak Velocity 132.0 cm/s AV Peak Gradient 7.0 mmHg LVOT Peak Velocity 119.0 cm/s LVOT Peak Gradient 5.7 mmHg AV Area Cont Eq pk 2.8 cm MV Area PHT 3.7 cm Mitral E Point Velocity 71.6 cm/s Mitral A Point Velocity 47.4 cm/s Mitral E to A Ratio 1.5 LV E' Lateral Velocity 6.4 cm/s Mitral E to LV E' Lateral Ratio 11.1 LV E' Septal Velocity 7.3 cm/s Mitral E to LV E' Septal Ratio 9.8 TR Peak Velocity 194.0 cm/s TR Peak Gradient 15.1 mmHg Right Atrial Pressure 10.0 mmHg Pulmonary Artery Systolic Pressu 25.1 mmHg Right Ventricular Systolic Press 25.1 mmHg PV Peak Velocity 115.0 cm/s PV Peak Gradient 5.3 mmHg FINDINGS LEFT VENTRICLE The left ventricular systolic function is normal with an estimated ejection fraction in the range of 60-65%. Normal left ventricular size. Wall thickness is normal. No regional wall motion abnormalities are present. RIGHT VENTRICLE The right ventricular size is normal. The right ventricular systoilc function is normal. LEFT ATRIUM The left atrial size is normal. RIGHT ATRIUM The right atrial size is normal. ATRIAL SEPTUM Normal atrial septal thickness. AORTA The aortic root and proximal ascending aorta are normal in size on limited imaging. MITRAL VALVE Structurally normal mitral valve. Trace mitral valve regurgitation. No mitral valve stenosis. AORTIC VALVE Grossly normal No aortic valve regurgitation. No aortic valve stenosis. TRICUSPID VALVE Structurally normal tricuspid valve. There is trace tricuspid valve regurgitation. The estimated pulmonary arterial pressure is 25.1 mmHg. PULMONARY VALVE The pulmonary valve is not well visualized. PERICARDIUM No pericardial effusion. Yamil Hylton DO (Electronically Signed) Final Date:12 June 2018 16:42
[2018-06-12] MEDS ORDERED: Insulin NovoLOG Aspart Correctional Sugar Inj SQ SCH (17:00)
[2018-06-12] MEDS: Insulin NovoLOG Aspart Correctional Sugar Inj SQ SCH ×2 (17:08→21:17)
[2018-06-12] MEDS ORDERED: Warfarin Consult Pharmacy 1 EACH OTHER SCH (17:34)
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
[2018-06-12] MEDS: Senna/Docusate Sodium 8.6/50 MG Tablet PO SCH (21:12)
[2018-06-12] MEDS: Famotidine 20 MG Tablet PO SCH (21:13)
[2018-06-13 03:35] LABS: Hematocrit 43.6 % (39.0-51.0); Hemoglobin 14.7 gm/dL (13.0-17.0); Mean Corpuscular HGB Conc 33.6 % (32.0-36.0); Mean Corpuscular Hemoglobin 28.5 pg (27.0-34.0); Mean Corpuscular Volume 84.8 fL (80.0-100.0); Platelet Count 222 th/mm3 (150-450); Red Blood Count 5.14 mil/mm3 (4.50-5.90); Red Cell Distribution Width 13.8 % (11.6-17.2); White Blood Count 7.2 th/mm3 (4.0-11.0)
[2018-06-13 03:41] LABS: Activated Partial Thrombo Time 50.6 sec (24.3-30.1); Prothrombin Time 10.4 sec (9.8-11.6)
[2018-06-13] MEDS ORDERED: Chlorhexidine Gluconate 2% 1 Pack (2 Cloths) TOPICAL PRN (04:00)
[2018-06-13 04:13] LABS: Anion Gap 7 meq/L (5-15); Blood Urea Nitrogen 11 mg/dL (7-18); Calcium 8.6 mg/dL (8.5-10.1); Carbon Dioxide 27.8 meq/L (21.0-32.0); Chloride 104 meq/L (98-107); Glomerular Filtration Rate Greater Than 89 mL/min (>89); Glucose,Random 97 mg/dL (74-106); Sodium 139 meq/L (136-145)
[2018-06-13 04:14] LABS: Cholesterol 189 mg/dL (120-200)
[2018-06-13 04:16] LABS: Chol/HDL Ratio 3.06 Ratio; HDL Cholesterol 61.6 mg/dL (40.0-60.0); LDL Cholesterol,Calculated 105 mg/dL (0-99); Triglycerides 113 mg/dL (42-150)
[2018-06-13] MEDS: Chlorhexidine Gluconate 2% 1 Pack (2 Cloths) TOPICAL SCH (05:59)
[2018-06-13] MEDS: Insulin NovoLOG Aspart Correctional Sugar Inj SQ SCH ×4 (07:39→21:07)
--- NOTE | 2018-06-13 08:04 | P.PNNEU ---
Subjective Subjective Comments: No acute events reported Active Medications: Active Medications Al Hydroxide/Mg Hydroxide (Milk Of Roxann Liq) 30 ml PO Q12H PRN PRN Reason: Mild Constipation Albuterol (Duoneb Neb (Prn)) 1 ampul NEB Q2HR NEB PRN PRN Reason: WHEEZING Bisacodyl (Dulcolax Supp) 10 mg RECTAL DAILY PRN PRN Reason: SEVERE CONSITIPATION Chlorhexidine Gluconate (Chlorhexidine 2% Cloth) 3 pack TOPICAL DAILY@0400 [facility] Stop: 06/18/18 03:59 Last Admin: 06/13/18 05:59 Dose: 3 pack Chlorhexidine Gluconate (Chlorhexidine 2% Cloth) 3 pack TOPICAL DAILY@0400 PRN PRN Reason: Extra cloth needed Stop: 06/18/18 03:59 Dextrose (D50w Vial) 50 ml IV.PUSH UNSCH PRN PRN Reason: PER HYPOGLYCEMIA PROTOCOL Famotidine (Pepcid) 20 mg PO BID [facility] Last Admin: 06/12/18 21:13 Dose: 20 mg Glucagon (Glucagon Inj) 1 mg OTHER UNSCH PRN PRN Reason: for Hypoglycemia Protocol Heparin Sodium/Dextrose (Heparin/D5w 25,000 U/250 Ml) 25,000 unit in 250 mls @ 10 mls/hr IV.CONT TITRATE PRN; Protocol PRN Reason: Per Protocol Last Admin: 06/12/18 13:59 Dose: 1,000 units/hr, 10 mls/hr Magnesium Sulfate Inj 4 gm/ (Sodium Chloride) 100 mls @ 50 mls/hr IV.SIG UNSCH PRN PRN Reason: For Magnesium 0.9 - 1.1 mg/dL Magnesium Sulfate Inj 2 gm/ (Sodium Chloride) 100 mls @ 50 mls/hr IV.SIG UNSCH PRN PRN Reason: For Magnesium 1.2 - 1.6 mg/dL Potassium Chloride (Kcl 40 Meq Premix Inj) 40 meq in 100 mls @ 50 mls/hr IV.SIG Q2H PRN PRN Reason: For Potassium 2.8 - 3.2 mEq/L Potassium Chloride (Kcl 20 Meq Premix Inj) 20 meq in 100 mls @ 50 mls/hr IV.SIG Q2H PRN PRN Reason: For Potassium 3.3 - 3.5 mEq/L Potassium Chloride (Kcl 40 Meq Premix Inj) 40 meq in 100 mls @ 25 mls/hr IV.SIG UNSCH PRN PRN Reason: For Potassium 3.3 - 3.5 mEq/L Potassium Chloride (Kcl 20 Meq Premix Inj) 20 meq in 100 mls @ 50 mls/hr IV.SIG Q2H PRN PRN Reason: For Potassium 2.8 - 3.2 mEq/L Potassium Phosphate 30 mmol/ (Sodium Chloride) 260 mls @ 42 mls/hr IV.SIG UNSCH PRN PRN Reason: SEE LABEL COMMENTS Sodium Phosphate 30 mmol/ (Sodium Chloride) 260 mls @ 42 mls/hr IV.SIG UNSCH PRN PRN Reason: For Phosphorus < 2.5 mg/dL Pharmacy Profile Note (Coumadin Consult Pharmacy) 0 mls @ 0 mls/hr OTHER UNSCH [facility] Insulin Aspart (Novolog Insulin Correctional Sugar Inj) 0 unit SQ ACHS [facility]; Protocol Last Admin: 06/13/18 07:39 Dose: Not Given Labetalol HCl (Trandate Inj) 10 mg IV.PUSH Q2H PRN PRN Reason: for sbp > 140 Lactulose (Lactulose Liq) 30 ml PO DAILY PRN PRN Reason: SEVERE CONSITIPATION Magnesium Oxide (Mag-Ox) 800 mg PO UNSCH PRN PRN Reason: For Magnesium 1.2 - 1.6 mg/dL Ondansetron HCl (Zofran Odt) 4 mg PO Q6H PRN PRN Reason: NAUSEA OR VOMITING Potassium Bicarb/Potassium Chloride (K-Lyte Cl Eff) 50 meq PO UNSCH PRN PRN Reason: For Potassium 3.3 - 3.5 mEq/L Potassium Phosphate (K-Phos Original) 2,000 mg PO Q4H PRN PRN Reason: Phosphorus Less Than 2.5 mg/dL Potassium Phosphate (K-Phos Original) 2,000 mg PO UNSCH PRN PRN Reason: SEE LABEL COMMENTS Senna/Docusate Sodium (Brianda-Colace) 1 tab PO BID [facility] Last Admin: 06/12/18 21:12 Dose: 1 tab Sennosides (Senokot) 17.2 mg PO Q12H PRN PRN Reason: Moderate Constipation Sodium Chloride (Ns Flush) 2 ml IV.FLUSH BID [facility] Last Admin: 06/12/18 21:15 Dose: 2 ml Sodium Chloride (Ns Flush) 2 ml IV.FLUSH UNSCH PRN PRN Reason: FLUSH AFTER USING IV ACCESS Warfarin Sodium (Coumadin) 5 mg PO DAILY@1600 I[facility] Allergies/Adverse Reactions: Allergies Allergy/AdvReac Type Severity Reaction Status Date / Time No Known Allergies Allergy Unverified 06/12/18 08:54 Physical Exam Vital signs: Vital Signs 06/12/18 08:30 06/12/18 08:52 06/12/18 09:01 Temperature 97.6 F Pulse Rate 74 120 H Respiratory Rate 16 18 Blood Pressure 139/86 163/100 H Pulse Oximetry 96 95 96 06/12/18 11:57 06/12/18 12:35 06/12/18 14:03 Temperature Pulse Rate 87 92 H Respiratory Rate 18 16 Blood Pressure 130/76 123/68 Pulse Oximetry 97 96 96 06/12/18 14:54 06/12/18 15:00 06/12/18 19:00 Temperature 97.6 F 98.6 F Pulse Rate 65 63 65 Respiratory Rate 17 18 18 Blood Pressure 126/66 126/70 119/75 Pulse Oximetry 97 94 L 95 06/12/18 20:00 06/12/18 21:48 06/12/18 23:00 Temperature 98 F Pulse Rate 65 Respiratory Rate 18 Blood Pressure 130/75 Pulse Oximetry 95 96 95 06/13/18 03:00 06/13/18 07:00 06/13/18 07:37 Temperature 98.1 F 97.4 F L Pulse Rate 57 L 70 65 Respiratory Rate 18 18 Blood Pressure 126/71 145/76 H Pulse Oximetry 95 95 Intake & Output 06/12/18 06/13/18 06/13/18 18:59 06:59 18:59 Intake Total 100 / 100 480 / 480 0 / 0 Output Total 950 / 950 300 / 300 Balance -850 / -850 180 / 180 0 / 0 Weight 81.647 kg Intake: Oral 100 / 100 480 / 480 0 / 0 Output: Urine 950 / 950 300 / 300 Narrative: vff minimal r droop 5/5 rue rle minimal left williamson Objective Laboratory Results - last 24 hr 06/12/18 06/12/18 06/12/18 09:00 09:00 09:05 WBC RBC Hgb Hct MCV MCH MCHC RDW Plt Count MPV PT 10.1 INR 1.0 APTT 27.4 Sodium 138 Potassium 3.7 Chloride 105 Carbon Dioxide 26.9 Anion Gap 6 BUN 14 Creatinine 0.98 Estimated GFR 86 L POC Glucose Random Glucose 89 Calcium 8.9 Total Creatine Kinase 174 CK-MB (CK-2) 1.1 Troponin I Less than 0.02 L Triglycerides Cholesterol LDL Cholesterol, Calc HDL Cholesterol Cholesterol/HDL Ratio Blood Type O Positive Blood Type Recheck Required Antibody Screen Negative 06/12/18 06/12/18 06/12/18 14:42 14:42 16:57 WBC 7.7 RBC 5.10 Hgb 14.7 Hct 43.8 MCV 86.0 MCH 28.8 MCHC 33.5 RDW 13.7 Plt Count 240 MPV 8.5 PT 10.8 INR 1.1 APTT Sodium Potassium Chloride Carbon Dioxide Anion Gap BUN Creatinine Estimated GFR POC Glucose 74 Random Glucose Calcium Total Creatine Kinase CK-MB (CK-2) Troponin I Triglycerides Cholesterol LDL Cholesterol, Calc HDL Cholesterol Cholesterol/HDL Ratio Blood Type Blood Type Recheck Antibody Screen 06/12/18 06/12/18 06/13/18 21:10 21:16 03:12 WBC 7.2 RBC 5.14 Hgb 14.7 Hct 43.6 MCV 84.8 MCH 28.5 MCHC 33.6 RDW 13.8 Plt Count 222 MPV 8.0 PT INR APTT 43.7 H D Sodium Potassium Chloride Carbon Dioxide Anion Gap BUN Creatinine Estimated GFR POC Glucose 95 Random Glucose Calcium Total Creatine Kinase CK-MB (CK-2) Troponin I Triglycerides Cholesterol LDL Cholesterol, Calc HDL Cholesterol Cholesterol/HDL Ratio Blood Type Blood Type Recheck Antibody Screen 06/13/18 06/13/18 06/13/18 03:12 03:12 07:28 WBC RBC Hgb Hct MCV MCH MCHC RDW Plt Count MPV PT 10.4 INR 1.0 APTT 50.6 H Sodium 139 Potassium 4.0 Chloride 104 Carbon Dioxide 27.8 Anion Gap 7 BUN 11 Creatinine 0.93 Estimated GFR Greater than 89 POC Glucose 92 Random Glucose 97 Calcium 8.6 Total Creatine Kinase CK-MB (CK-2) Troponin I Triglycerides 113 Cholesterol 189 LDL Cholesterol, Calc 105 H HDL Cholesterol 61.6 H Cholesterol/HDL Ratio 3.06 Blood Type Blood Type Recheck Antibody Screen Review/Management - Review/Management Plan: imp left ica dissection get inr 2-2.5 then can dc nusu for sign hydrocephalus with some transependymal flow oob ok will need major fu [place] and maybe box hinge and lock attacher today by med team med team plz dose acoumadin and follow inr got 10mg last pm
[2018-06-13] MEDS: Senna/Docusate Sodium 8.6/50 MG Tablet PO SCH ×2 (08:31→21:09)
[2018-06-13] MEDS: Famotidine 20 MG Tablet PO SCH ×2 (08:32→21:09)
--- NOTE | 2018-06-13 08:41 | P.PNCC ---
Subjective Subjective Remarks/Hospital Course: Hospital Course: This is a 37-year-old male with no past medical history who was traveling on vacation down from [place] when yesterday he had sudden onset visual field deficits and could not see out of his left eye. He does state that approximately 2 days earlier he had significant alcohol intake with friends, and thought this was related to a hangover. He drinks 6-8 glasses of water and felt that his vision changes improved. Today he had persistent intermittent weakness over his right side of his body and was concerned so he came in for evaluation. CTA head neck demonstrates a left-sided spontaneous internal carotid artery dissection, and MRI brain demonstrates multiple tiny embolic appearing infarcts in the left cortical hemisphere. Currently, the patient denies any symptoms. He states his vision changes have completely resolved. He denies any weakness, sensory changes, imbalance, dizziness, syncope. He has never had anything like this. He denies any family history of stroke. Review of systems is otherwise unremarkable. Of note, he does not work out or lift weights, has not had any recent trauma to the neck or had any other strenuous activity. Subjective: 06/13: no neuro changes. hgb stable. received first dose of coumadin last night. denies complaints. wants to go home. ROS negative. Objective Vital Signs / I&O: Vital Signs 06/12/18 08:52 06/12/18 09:01 06/12/18 11:57 Temperature Pulse Rate 120 H Respiratory Rate 18 Blood Pressure 163/100 H Pulse Oximetry 95 96 97 06/12/18 12:35 06/12/18 14:03 06/12/18 14:54 Temperature Pulse Rate 87 92 H 65 Respiratory Rate 18 16 17 Blood Pressure 130/76 123/68 126/66 Pulse Oximetry 96 96 97 06/12/18 15:00 06/12/18 19:00 06/12/18 20:00 Temperature 36.4 C 37.0 C Pulse Rate 63 65 Respiratory Rate 18 18 Blood Pressure 126/70 119/75 Pulse Oximetry 94 L 95 95 06/12/18 21:48 06/12/18 23:00 06/13/18 03:00 Temperature 36.6 C 36.7 C Pulse Rate 65 57 L Respiratory Rate 18 18 Blood Pressure 130/75 126/71 Pulse Oximetry 96 95 95 06/13/18 07:00 06/13/18 07:37 06/13/18 08:35 Temperature 36.3 C L Pulse Rate 70 65 Respiratory Rate 18 Blood Pressure 145/76 H Pulse Oximetry 95 95 Intake & Output 06/12/18 06/13/18 06/13/18 18:59 06:59 18:59 Intake Total 100 / 100 480 / 480 0 / 0 Output Total 950 / 950 300 / 300 Balance -850 / -850 180 / 180 0 / 0 Weight 81.647 kg Intake: Oral 100 / 100 480 / 480 0 / 0 Output: Urine 950 / 950 300 / 300 Result Diagrams: 06/13/18 03:12 06/13/18 03:12 Objective Remarks: GENERAL: Young male, sitting in bed, no acute distress HEENT: Normocephalic. Atraumatic. Pupils equal, round, reactive, conjugate. Mucous membranes are moist NECK: Trachea is midline. There is no JVD. CHEST: Equal chest rise. Unlabored. Room air. CARDIOVASCULAR: Normal rate. Regular rhythm. Sinus. ABDOMEN: Soft, nontender, nondistended. No guarding. MUSCULOSKELETAL: Pulses 2+. No peripheral edema. NEUROLOGICAL: RASS 0. GCS 15. Follows commands in all 4 extremities. no focal deficits. 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 Stable. can transfer out of ICU. needs to be appropriately coumadinized prior to discharge back to home in [place]. Acute spontaneous left ICA dissection - heparin drip transitioning to coumadin (with pharmacy dosing assistance) - vascular surgery consultation to follow along, but non-operative management is recommended. - goal sbp < 140 - prn labetalol Hypertension - goal sbp < 140 - start labetalol 100mg po q8h - continue prn iv labetalol Acute CVA - 2d echo: normal ef, no wall motion or significant valvular lesions. - stroke navigator consult - neurology consult: Dr. Pryor - lipids - a1c -PT/OT/ST - cardiac diet as tolerated - anticoagulation - mivf pepcid SCDs transfer out of ICU. consult hospitalist service to assume care.
[2018-06-13] MEDS: Labetalol 100 MG Tablet PO SCH ×2 (09:24→17:09)
[2018-06-13] MEDS: Heparin Drip 25,000 UNIT/250 ML BAG IV.CONT PRN (09:37)
--- NOTE | 2018-06-13 10:47 | P.CONNS ---
History of Present Illness Service: neurosurgery Consult date: 06/13/18 Requesting Physician: Maynor Vinson Primary Care Provider: No Primary Care Physician Chief Complaint: Vision changes History of Present Illness: This is a 37-year-old male with no past medical history who was traveling on vacation down from [place] when yesterday he had sudden onset visual field deficits and could not see out of his left eye. He does state that approximately 2 days earlier he had significant alcohol intake with friends, and thought this was related to a hangover. He drinks 6-8 glasses of water and felt that his vision changes improved. Today he had persistent intermittent weakness over his right side of his body and was concerned so he came in for evaluation. CTA head neck demonstrates a left-sided spontaneous internal carotid artery dissection, and MRI brain demonstrates multiple tiny embolic appearing infarcts in the left cortical hemisphere. Currently, the patient denies any symptoms. He states his vision changes have completely resolved. He denies any weakness, sensory changes, imbalance, dizziness, syncope. He has never had anything like this. He denies any family history of stroke. Review of systems is otherwise unremarkable. Of note, he does not work out or lift weights, has not had any recent trauma to the neck or had any other strenuous activity. PMFSH - History History Provided By: Patient - Medical / Surgical Hx Neg / Unobtainable Medical Problems Denied: Yes - Tobacco History Second Hand Smoke Exposure: No Tobacco Use In Past 30 Days: Yes Smoking Status: Current some day smoker Tobacco Type: Cigarettes Packs Per Day: 0.5 (Patient reports smoking a few cigarettes a day, but only a few days a week, not daily.) - Alcohol History How Often Do You Have a Drink Containing Alcohol: 4 or more times a week - Substance Use History Substance History: No History of Abuse - Travel History Recent Travel in the [facility] Within the Last 8 Weeks: No Recent Travel Out of the Country Within the Last 8 Weeks: No - Immunization History Tetanus Immunization: Unsure Hx Influenza Vaccine This Season: No Medications and Allergies Active Medications: Active Medications Al Hydroxide/Mg Hydroxide (Milk Of Magnbhargav Liq) 30 ml PO Q12H PRN PRN Reason: Mild Constipation Albuterol (Duoneb Neb (Prn)) 1 ampul NEB Q2HR NEB PRN PRN Reason: WHEEZING Bisacodyl (Dulcolax Supp) 10 mg RECTAL DAILY PRN PRN Reason: SEVERE CONSITIPATION Chlorhexidine Gluconate (Chlorhexidine 2% Cloth) 3 pack TOPICAL DAILY@0400 [facility] Stop: 06/18/18 03:59 Last Admin: 06/13/18 05:59 Dose: 3 pack Chlorhexidine Gluconate (Chlorhexidine 2% Cloth) 3 pack TOPICAL DAILY@0400 PRN PRN Reason: Extra cloth needed Stop: 06/18/18 03:59 Dextrose (D50w Vial) 50 ml IV.PUSH UNSCH PRN PRN Reason: PER HYPOGLYCEMIA PROTOCOL Famotidine (Pepcid) 20 mg PO BID [facility] Last Admin: 06/13/18 08:32 Dose: 20 mg Glucagon (Glucagon Inj) 1 mg OTHER UNSCH PRN PRN Reason: for Hypoglycemia Protocol Heparin Sodium/Dextrose (Heparin/D5w 25,000 U/250 Ml) 25,000 unit in 250 mls @ 10 mls/hr IV.CONT TITRATE PRN; Protocol PRN Reason: Per Protocol Last Admin: 06/13/18 09:37 Dose: 1,200 units/hr, 12 mls/hr Magnesium Sulfate Inj 4 gm/ (Sodium Chloride) 100 mls @ 50 mls/hr IV.SIG UNSCH PRN PRN Reason: For Magnesium 0.9 - 1.1 mg/dL Magnesium Sulfate Inj 2 gm/ (Sodium Chloride) 100 mls @ 50 mls/hr IV.SIG UNSCH PRN PRN Reason: For Magnesium 1.2 - 1.6 mg/dL Potassium Chloride (Kcl 40 Meq Premix Inj) 40 meq in 100 mls @ 50 mls/hr IV.SIG Q2H PRN PRN Reason: For Potassium 2.8 - 3.2 mEq/L Potassium Chloride (Kcl 20 Meq Premix Inj) 20 meq in 100 mls @ 50 mls/hr IV.SIG Q2H PRN PRN Reason: For Potassium 3.3 - 3.5 mEq/L Potassium Chloride (Kcl 40 Meq Premix Inj) 40 meq in 100 mls @ 25 mls/hr IV.SIG UNSCH PRN PRN Reason: For Potassium 3.3 - 3.5 mEq/L Potassium Chloride (Kcl 20 Meq Premix Inj) 20 meq in 100 mls @ 50 mls/hr IV.SIG Q2H PRN PRN Reason: For Potassium 2.8 - 3.2 mEq/L Potassium Phosphate 30 mmol/ (Sodium Chloride) 260 mls @ 42 mls/hr IV.SIG UNSCH PRN PRN Reason: SEE LABEL COMMENTS Sodium Phosphate 30 mmol/ (Sodium Chloride) 260 mls @ 42 mls/hr IV.SIG UNSCH PRN PRN Reason: For Phosphorus < 2.5 mg/dL Pharmacy Profile Note (Coumadin Consult Pharmacy) 0 mls @ 0 mls/hr OTHER UNSCH [facility] Insulin Aspart (Novolog Insulin Correctional Sugar Inj) 0 unit SQ ACHS [facility]; Protocol Last Admin: 06/13/18 07:39 Dose: Not Given Labetalol HCl (Trandate Inj) 10 mg IV.PUSH Q2H PRN PRN Reason: for sbp > 140 Labetalol HCl (Trandate) 100 mg PO Q8H [facility] Last Admin: 06/13/18 09:24 Dose: 100 mg Lactulose (Lactulose Liq) 30 ml PO DAILY PRN PRN Reason: SEVERE CONSITIPATION Magnesium Oxide (Mag-Ox) 800 mg PO UNSCH PRN PRN Reason: For Magnesium 1.2 - 1.6 mg/dL Ondansetron HCl (Zofran Odt) 4 mg PO Q6H PRN PRN Reason: NAUSEA OR VOMITING Potassium Bicarb/Potassium Chloride (K-Lyte Cl Eff) 50 meq PO UNSCH PRN PRN Reason: For Potassium 3.3 - 3.5 mEq/L Potassium Phosphate (K-Phos Original) 2,000 mg PO Q4H PRN PRN Reason: Phosphorus Less Than 2.5 mg/dL Potassium Phosphate (K-Phos Original) 2,000 mg PO UNSCH PRN PRN Reason: SEE LABEL COMMENTS Senna/Docusate Sodium (Brianda-Colace) 1 tab PO BID [facility] Last Admin: 06/13/18 08:31 Dose: 1 tab Sennosides (Senokot) 17.2 mg PO Q12H PRN PRN Reason: Moderate Constipation Sodium Chloride (Ns Flush) 2 ml IV.FLUSH BID [facility] Last Admin: 06/13/18 09:24 Dose: 2 ml Sodium Chloride (Ns Flush) 2 ml IV.FLUSH UNSCH PRN PRN Reason: FLUSH AFTER USING IV ACCESS Warfarin Sodium (Coumadin) 5 mg PO DAILY@1600 [facility] Allergies Allergy/AdvReac Type Severity Reaction Status Date / Time No Known Allergies Allergy Unverified 06/12/18 08:54 Home Medications Medication Instructions Recorded Confirmed Type No Known Home Medications 06/12/18 06/12/18 History Exam Vital signs: Vital Signs 06/12/18 11:57 06/12/18 12:35 06/12/18 14:03 Temperature Pulse Rate 87 92 H Respiratory Rate 18 16 Blood Pressure 130/76 123/68 Pulse Oximetry 97 96 96 06/12/18 14:54 06/12/18 15:00 06/12/18 19:00 Temperature 97.6 F 98.6 F Pulse Rate 65 63 65 Respiratory Rate 17 18 18 Blood Pressure 126/66 126/70 119/75 Pulse Oximetry 97 94 L 95 06/12/18 20:00 06/12/18 21:48 06/12/18 23:00 Temperature 98 F Pulse Rate 65 Respiratory Rate 18 Blood Pressure 130/75 Pulse Oximetry 95 96 95 06/13/18 03:00 06/13/18 07:00 06/13/18 07:37 Temperature 98.1 F 97.4 F L Pulse Rate 57 L 70 65 Respiratory Rate 18 18 Blood Pressure 126/71 145/76 H Pulse Oximetry 95 95 06/13/18 08:35 06/13/18 09:00 Temperature Pulse Rate 65 Respiratory Rate Blood Pressure Pulse Oximetry 95 Intake & Output 06/12/18 06/13/18 06/13/18 18:59 06:59 18:59 Intake Total 100 / 100 480 / 480 250 / 250 Output Total 950 / 950 300 / 300 Balance -850 / -850 180 / 180 250 / 250 Weight 81.647 kg Intake: IV 250 / 250 Heparin/D5W 25,000 U/250 mL 25, 250 / 250 000 unit In 250 ml @ 1,000 UNITS/HR 10 mls/hr IV.CONT TITRATE PRN Rx#:[id number] Oral 100 / 100 480 / 480 0 / 0 Output: Urine 950 / 950 300 / 300 Narrative: The patient is alert, awake. Comfortable, in no acute distress. Speech is fluent. Cranial nerve examination: pupils to be equal, round and reactive to light. Extra-ocular movements are intact. Facial motor and sensory function are normal and symmetrical. Gross hearing appears intact. Sternocleidomastoid and trapezius muscles are symmetrical. Other cranial nerves are intact. Neck is soft and supple with a good range of motion without pain. Muscle strength is normal in all muscle groups of both upper and lower extremities. Sensory examination is intact to light touch and pin prick in both the upper and lower extremities. Deep tendon reflexes are symmetrical in both upper and lower extremities. There is a bilateral plantar flexion response. Cerebellar examination is unremarkable, without deficits. Lungs are clear Heart regular rhythm is regular rate Skin warm and dry Results - Laboratory Findings CBC and BMP: 06/13/18 03:12 06/13/18 03:12 Abnormal lab findings: Abnormal Labs 06/12/18 06/12/18 06/13/18 09:00 21:10 03:12 APTT 43.7 H D Estimated GFR 86 L Troponin I Less than 0.02 L LDL Cholesterol, Calc 105 H HDL Cholesterol 61.6 H 06/13/18 03:12 APTT 50.6 H Estimated GFR Troponin I LDL Cholesterol, Calc HDL Cholesterol Assessment and Plan - Plan I reviewed his clinical and diagnostic procedures. Chest X-Ray 06/12/18 08:55 CONCLUSION: No acute intrathoracic disease. Head CT 06/12/18 08:55 CONCLUSION: 1. Mild diffuse ventriculomegaly out of proportion to brain density. Head CTA 06/12/18 08:55 CONCLUSION: 1. 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 2. Otherwise unremarkable CTA of the brain. Neck CTA 06/12/18 08:57 CONCLUSION: 1. There is a dissection involving the mid portion of the left internal carotid artery with a subintimal hematoma causing compression of the lumen for approximately 2 cm in length. There is reconstitution of the distal left internal carotid artery just below the base of the skull. 2. The rest the examination is within normal limits for patient's age. Head MRI 06/12/18 12:17 CONCLUSION: 1. There are several punctate areas of restricted diffusion throughout the left cerebral hemisphere characteristic for focal areas of acute infarction. 2. The ventricles are prominent bilaterally. There is also evidence of ischemic demyelinization bilaterally. The patient has a left carotid dissection of idiopathic nature, which extends about 2-1/2 inches up to the base of the skull and then disappears. In addition, he has several punctate hemorrhages in the left cerebral hemisphere on MRI while the CTA does not show any abnormalities. I reviewed the patient's echocardiogram as well as electrocardiogram aswell. His hydrocephalus is incidental and chronic. At this point, therapy recommended for this is anticoagulation followed by p.o. anticoagulants. Most of patients will have no symptoms in the future and a few months later the carotid artery appears to be normal and barely visible thickening where the dissection occurred. Therefore, he is not a candidate for surgery, lumbar drain placement, or a shunt The reason for dissections are unclear.I agree with Neurology on the treatment of this patient. Blood pressure should be kept below 140 mmHg. Daily PT and OT Renal: Continue to monitor closely urine output, BUN and creatinine Endocrine: Continue to Monitor serial Acu checks and SSI as needed in detail ID continue to monitor for signs of infection Continue Protonix for stress ulcer prophylaxis Continue Venancio hose and SCD's for DVT prophylaxis Further recommendations will be provided depending on the patient's clinical evaluation and follow up studies.
[2018-06-13 16:28] LABS: Hemoglobin A1c 5.5 % (4.3-6.0)
[2018-06-14] MEDS: Labetalol 100 MG Tablet PO SCH ×4 (02:00→22:06)
[2018-06-14] MEDS: Chlorhexidine Gluconate 2% 1 Pack (2 Cloths) TOPICAL SCH (04:35)
[2018-06-14] MEDS: Heparin Drip 25,000 UNIT/250 ML BAG IV.CONT PRN (05:10)
--- NOTE | 2018-06-14 07:11 | P.PNNEU ---
Subjective Subjective Comments: No acute events reported No headache No chest pain No dyspnea Active Medications: Active Medications Al Hydroxide/Mg Hydroxide (Milk Of Magnbhargav Liq) 30 ml PO Q12H PRN PRN Reason: Mild Constipation Albuterol (Duoneb Neb (Prn)) 1 ampul NEB Q2HR NEB PRN PRN Reason: WHEEZING Bisacodyl (Dulcolax Supp) 10 mg RECTAL DAILY PRN PRN Reason: SEVERE CONSITIPATION Chlorhexidine Gluconate (Chlorhexidine 2% Cloth) 3 pack TOPICAL DAILY@0400 [facility] Stop: 06/18/18 03:59 Last Admin: 06/14/18 04:35 Dose: Not Given Chlorhexidine Gluconate (Chlorhexidine 2% Cloth) 3 pack TOPICAL DAILY@0400 PRN PRN Reason: Extra cloth needed Stop: 06/18/18 03:59 Dextrose (D50w Vial) 50 ml IV.PUSH UNSCH PRN PRN Reason: PER HYPOGLYCEMIA PROTOCOL Famotidine (Pepcid) 20 mg PO BID [facility] Last Admin: 06/13/18 21:09 Dose: 20 mg Glucagon (Glucagon Inj) 1 mg OTHER UNSCH PRN PRN Reason: for Hypoglycemia Protocol Heparin Sodium/Dextrose (Heparin/D5w 25,000 U/250 Ml) 25,000 unit in 250 mls @ 10 mls/hr IV.CONT TITRATE PRN; Protocol PRN Reason: Per Protocol Last Admin: 06/14/18 05:10 Dose: 1,200 units/hr, 12 mls/hr Magnesium Sulfate Inj 4 gm/ (Sodium Chloride) 100 mls @ 50 mls/hr IV.SIG UNSCH PRN PRN Reason: For Magnesium 0.9 - 1.1 mg/dL Magnesium Sulfate Inj 2 gm/ (Sodium Chloride) 100 mls @ 50 mls/hr IV.SIG UNSCH PRN PRN Reason: For Magnesium 1.2 - 1.6 mg/dL Potassium Chloride (Kcl 40 Meq Premix Inj) 40 meq in 100 mls @ 50 mls/hr IV.SIG Q2H PRN PRN Reason: For Potassium 2.8 - 3.2 mEq/L Potassium Chloride (Kcl 20 Meq Premix Inj) 20 meq in 100 mls @ 50 mls/hr IV.SIG Q2H PRN PRN Reason: For Potassium 3.3 - 3.5 mEq/L Potassium Chloride (Kcl 40 Meq Premix Inj) 40 meq in 100 mls @ 25 mls/hr IV.SIG UNSCH PRN PRN Reason: For Potassium 3.3 - 3.5 mEq/L Potassium Chloride (Kcl 20 Meq Premix Inj) 20 meq in 100 mls @ 50 mls/hr IV.SIG Q2H PRN PRN Reason: For Potassium 2.8 - 3.2 mEq/L Potassium Phosphate 30 mmol/ (Sodium Chloride) 260 mls @ 42 mls/hr IV.SIG UNSCH PRN PRN Reason: SEE LABEL COMMENTS Sodium Phosphate 30 mmol/ (Sodium Chloride) 260 mls @ 42 mls/hr IV.SIG UNSCH PRN PRN Reason: For Phosphorus < 2.5 mg/dL Pharmacy Profile Note (Coumadin Consult Pharmacy) 0 mls @ 0 mls/hr OTHER UNSCH [facility] Insulin Aspart (Novolog Insulin Correctional Sugar Inj) 0 unit SQ ACHS [facility]; Protocol Last Admin: 06/13/18 21:07 Dose: Not Given Labetalol HCl (Trandate Inj) 10 mg IV.PUSH Q2H PRN PRN Reason: for sbp > 140 Labetalol HCl (Trandate) 100 mg PO Q8H [facility] Last Admin: 06/14/18 05:06 Dose: 100 mg Lactulose (Lactulose Liq) 30 ml PO DAILY PRN PRN Reason: SEVERE CONSITIPATION Magnesium Oxide (Mag-Ox) 800 mg PO UNSCH PRN PRN Reason: For Magnesium 1.2 - 1.6 mg/dL Ondansetron HCl (Zofran Odt) 4 mg PO Q6H PRN PRN Reason: NAUSEA OR VOMITING Potassium Bicarb/Potassium Chloride (K-Lyte Cl Eff) 50 meq PO UNSCH PRN PRN Reason: For Potassium 3.3 - 3.5 mEq/L Potassium Phosphate (K-Phos Original) 2,000 mg PO Q4H PRN PRN Reason: Phosphorus Less Than 2.5 mg/dL Potassium Phosphate (K-Phos Original) 2,000 mg PO UNSCH PRN PRN Reason: SEE LABEL COMMENTS Senna/Docusate Sodium (Brianda-Colace) 1 tab PO BID [facility] Last Admin: 06/13/18 21:09 Dose: 1 tab Sennosides (Senokot) 17.2 mg PO Q12H PRN PRN Reason: Moderate Constipation Sodium Chloride (Ns Flush) 2 ml IV.FLUSH BID [facility] Last Admin: 06/13/18 21:12 Dose: 2 ml Sodium Chloride (Ns Flush) 2 ml IV.FLUSH UNSCH PRN PRN Reason: FLUSH AFTER USING IV ACCESS Warfarin Sodium (Coumadin) 5 mg PO DAILY@1600 [facility] Last Admin: 06/13/18 15:57 Dose: 5 mg Allergies/Adverse Reactions: Allergies Allergy/AdvReac Type Severity Reaction Status Date / Time No Known Allergies Allergy Unverified 06/12/18 08:54 Physical Exam Vital signs: Vital Signs 06/13/18 07:37 06/13/18 08:35 06/13/18 09:00 Temperature Pulse Rate 65 65 Respiratory Rate Blood Pressure Pulse Oximetry 95 06/13/18 11:00 06/13/18 11:55 06/13/18 15:05 Temperature 98.5 F 97.5 F L Pulse Rate 73 70 65 Respiratory Rate 18 18 Blood Pressure 140/84 124/70 Pulse Oximetry 95 95 06/13/18 16:00 06/13/18 19:05 06/13/18 21:19 Temperature 98.5 F Pulse Rate 68 69 67 Respiratory Rate 18 Blood Pressure 116/72 Pulse Oximetry 93 L 06/13/18 23:49 06/14/18 00:00 06/14/18 03:57 Temperature 98.6 F Pulse Rate 71 64 59 L Respiratory Rate 18 Blood Pressure 113/59 L Pulse Oximetry 97 06/14/18 04:00 Temperature 98.2 F Pulse Rate 63 Respiratory Rate 16 Blood Pressure 116/65 Pulse Oximetry 94 L Intake & Output 06/13/18 06/14/18 06/14/18 18:59 06:59 18:59 Intake Total 700 / 700 610 / 610 Output Total 2250 / 2250 500 / 500 Balance -1550 / -1550 110 / 110 Weight 83.4 kg Intake: IV 250 / 250 250 / 250 Heparin/D5W 25,000 U/250 mL 25, 250 / 250 250 / 250 000 unit In 250 ml @ 1,000 UNITS/HR 10 mls/hr IV.CONT TITRATE PRN Rx#:[id number] Oral 450 / 450 360 / 360 Output: Urine 2250 / 2250 500 / 500 Other: # Bowel Movements 0 Weight On Admission 83.4 kg Narrative: speech nl vff face sym 5/5 Objective Laboratory Results - last 24 hr 06/13/18 06/13/18 06/13/18 03:12 07:28 11:14 POC Glucose 92 85 Hemoglobin A1c 5.5 06/13/18 06/13/18 16:55 19:54 POC Glucose 86 88 Hemoglobin A1c Review/Management - Review/Management Plan: imp left ica dissection get inr 2-2.5 then can dc [facility] for sign hydrocephalus with some transependymal flow oob ok will need major fu up [place] and maybe [place] today by med team med team plángel dose acoumadin and follow inr got 10mg last pm 06/14/18 doing better [facility] thought hydrocephalus chronic dc when inr >1.9 will need close fu plan after dc nejeanie to see doc up [place] day after dc
[2018-06-14 07:13] LABS: Hematocrit 45.5 % (39.0-51.0); Hemoglobin 15.2 gm/dL (13.0-17.0); Mean Corpuscular HGB Conc 33.3 % (32.0-36.0); Mean Corpuscular Hemoglobin 28.5 pg (27.0-34.0); Mean Corpuscular Volume 85.5 fL (80.0-100.0); Mean Platelet Volume 8.6 fL (7.0-11.0); Platelet Count 241 th/mm3 (150-450); Red Blood Count 5.32 mil/mm3 (4.50-5.90); Red Cell Distribution Width 14.2 % (11.6-17.2)
[2018-06-14 07:16] LABS: Activated Partial Thrombo Time 49.5 sec (24.3-30.1); INR 1.1 Ratio; Prothrombin Time 11.4 sec (9.8-11.6)
[2018-06-14 07:35] LABS: Calcium 9.1 mg/dL (8.5-10.1); Carbon Dioxide 25.9 meq/L (21.0-32.0); Potassium 3.4 meq/L (3.5-5.1)
[2018-06-14] MEDS: Famotidine 20 MG Tablet PO SCH ×2 (09:44→22:06)
[2018-06-14] MEDS: Insulin NovoLOG Aspart Correctional Sugar Inj SQ SCH ×4 (09:44→22:07)
[2018-06-14] MEDS: Senna/Docusate Sodium 8.6/50 MG Tablet PO SCH ×2 (09:44→22:06)
--- NOTE | 2018-06-14 12:34 | P.PNIM ---
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 We able to text better on his cell phone. Physical Exam Vital signs: Vital Signs 06/13/18 15:05 06/13/18 16:00 06/13/18 19:05 Temperature 97.5 F L 98.5 F Pulse Rate 65 68 69 Respiratory Rate 18 18 Blood Pressure 124/70 116/72 Pulse Oximetry 95 93 L 06/13/18 21:19 06/13/18 23:49 06/14/18 00:00 Temperature 98.6 F Pulse Rate 67 71 64 Respiratory Rate 18 Blood Pressure 113/59 L Pulse Oximetry 97 06/14/18 03:57 06/14/18 04:00 06/14/18 08:00 Temperature 98.2 F 98.0 F Pulse Rate 59 L 63 66 Respiratory Rate 16 18 Blood Pressure 116/65 116/64 Pulse Oximetry 94 L 95 06/14/18 09:00 Temperature Pulse Rate 79 Respiratory Rate Blood Pressure Pulse Oximetry Intake & Output 06/13/18 06/14/18 06/14/18 18:59 06:59 18:59 Intake Total 700 / 700 610 / 610 Output Total 2250 / 2250 500 / 500 Balance -1550 / -1550 110 / 110 Weight 83.4 kg Intake: IV 250 / 250 250 / 250 Heparin/D5W 25,000 U/250 mL 25, 250 / 250 250 / 250 000 unit In 250 ml @ 1,000 UNITS/HR 10 mls/hr IV.CONT TITRATE PRN Rx#:[id number] Oral 450 / 450 360 / 360 Output: Urine 2250 / 2250 500 / 500 Other: # Bowel Movements 0 Weight On Admission 83.4 kg Narrative: GENERAL: This is a well-nourished, well-developed patient, in no apparent distress. CARDIOVASCULAR: Regular rate and rhythm without murmurs, gallops, or rubs. RESPIRATORY: Clear to auscultation. Breath sounds equal bilaterally. No wheezes , rales, or rhonchi. GASTROINTESTINAL: Abdomen soft, non-tender, nondistended. Normal active bowel sounds MUSCULOSKELETAL: Extremities without clubbing, cyanosis, or edema. NEURO: Alert & Oriented x4 to person, place, time, situation. Moves all ext x4 Results - Labs CBC & Chem 7: 06/14/18 05:54 06/14/18 05:54 Laboratory Results - last 24 hr 06/13/18 06/13/18 06/13/18 03:12 16:55 19:54 WBC RBC Hgb Hct MCV MCH MCHC RDW Plt Count MPV PT INR APTT Sodium Potassium Chloride Carbon Dioxide Anion Gap BUN Creatinine Estimated GFR POC Glucose 86 88 Random Glucose Hemoglobin A1c 5.5 Calcium 06/14/18 06/14/18 06/14/18 05:54 05:54 05:54 WBC 7.0 RBC 5.32 Hgb 15.2 Hct 45.5 MCV 85.5 MCH 28.5 MCHC 33.3 RDW 14.2 Plt Count 241 MPV 8.6 PT 11.4 INR 1.1 APTT 49.5 H Sodium 141 Potassium 3.4 L Chloride 104 Carbon Dioxide 25.9 Anion Gap 11 BUN 12 Creatinine 1.04 Estimated GFR 80 L POC Glucose Random Glucose 90 Hemoglobin A1c Calcium 9.1 06/14/18 07:58 WBC RBC Hgb Hct MCV MCH MCHC RDW Plt Count MPV PT INR APTT Sodium Potassium Chloride Carbon Dioxide Anion Gap BUN Creatinine Estimated GFR POC Glucose 97 Random Glucose Hemoglobin A1c Calcium Assessment and Plan - Plan 37-year-old male with an unremarkable past medical history, with risk factors positive for tobacco use, who presents with 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 Stable. needs to be appropriately coumadinized prior to discharge back to home in [place]. Acute spontaneous left ICA dissection - heparin drip transitioning to coumadin (with pharmacy dosing assistance) INR currently 1.1 - vascular surgery consultation to follow along, but non-operative management is recommended. - goal sbp < 140 - prn labetalol Coumadin education provided today. Hypertension - goal sbp < 140, currently blood pressure is well controlled. - start labetalol 100mg po q8h - continue prn iv labetalol Acute CVA - 2d echo: normal ef, no wall motion or significant valvular lesions. - stroke navigator consult - neurology consult: Dr. Pryor has cleared the patient when INR is greater than 2.0 - cardiac diet as tolerated - anticoagulation DVT prophylaxisheparin and Coumadin
--- NOTE | 2018-06-14 18:05 | P.PNNS ---
Subjective Interval history: This is a 37-year-old male with no past medical history who was traveling on vacation down from [place] when yesterday he had sudden onset visual field deficits and could not see out of his left eye. He does state that approximately 2 days earlier he had significant alcohol intake with friends, and thought this was related to a hangover. He drinks 6-8 glasses of water and felt that his vision changes improved. Today he had persistent intermittent weakness over his right side of his body and was concerned so he came in for evaluation. CTA head neck demonstrates a left-sided spontaneous internal carotid artery dissection, and MRI brain demonstrates multiple tiny embolic appearing infarcts in the left cortical hemisphere. Currently, the patient denies any symptoms. He states his vision changes have completely resolved. He denies any weakness, sensory changes, imbalance, dizziness, syncope. He has never had anything like this. He denies any family history of stroke. Review of systems is otherwise unremarkable. Of note, he does not work out or lift weights, has not had any recent trauma to the neck or had any other strenuous activity. 06/14. Neurologically stable Physical Exam Vital signs: Vital Signs 06/13/18 19:05 06/13/18 21:19 06/13/18 23:49 Temperature 98.5 F Pulse Rate 69 67 71 Respiratory Rate 18 Blood Pressure 116/72 Pulse Oximetry 93 L 06/14/18 00:00 06/14/18 03:57 06/14/18 04:00 Temperature 98.6 F 98.2 F Pulse Rate 64 59 L 63 Respiratory Rate 18 16 Blood Pressure 113/59 L 116/65 Pulse Oximetry 97 94 L 06/14/18 08:00 06/14/18 09:00 06/14/18 12:00 Temperature 98.0 F 98.6 F Pulse Rate 66 79 69 Respiratory Rate 18 18 Blood Pressure 116/64 120/71 Pulse Oximetry 95 95 06/14/18 16:00 Temperature Pulse Rate 68 Respiratory Rate Blood Pressure Pulse Oximetry Intake & Output 06/13/18 06/14/18 06/14/18 18:59 06:59 18:59 Intake Total 700 / 700 610 / 610 Output Total 2250 / 2250 500 / 500 Balance -1550 / -1550 110 / 110 Weight 83.4 kg Intake: IV 250 / 250 250 / 250 Heparin/D5W 25,000 U/250 mL 25, 250 / 250 250 / 250 000 unit In 250 ml @ 1,000 UNITS/HR 10 mls/hr IV.CONT TITRATE PRN Rx#:[id number] Oral 450 / 450 360 / 360 Output: Urine 2250 / 2250 500 / 500 Other: # Bowel Movements 0 Weight On Admission 83.4 kg Narrative: GENERAL: mr Moses is alert, awake. Comfortable, in no acute distress. Speech is fluent. Cranial nerve examination: pupils to be equal, round and reactive to light. Extra-ocular movements are intact. Facial motor and sensory function are normal and symmetrical. Gross hearing appears intact. Sternocleidomastoid and trapezius muscles are symmetrical. Other cranial nerves are intact. Neck is soft and supple with a good range of motion without pain. Muscle strength is normal in all muscle groups of both upper and lower extremities. Sensory examination is intact to light touch and pin prick in both the upper and lower extremities. Deep tendon reflexes are symmetrical in both upper and lower extremities. There is a bilateral plantar flexion response. Cerebellar examination is unremarkable, without deficits. Lungs are clear Heart regular rhythm is regular rate Skin warm and dry Assessment and Plan - Plan I again reviewed his clinical and diagnostic procedures. Chest X-Ray 06/12/18 08:55 CONCLUSION: No acute intrathoracic disease. Head CT 06/12/18 08:55 CONCLUSION: 1. Mild diffuse ventriculomegaly out of proportion to brain density. Head CTA 06/12/18 08:55 CONCLUSION: 1. 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 2. Otherwise unremarkable CTA of the brain. Neck CTA 06/12/18 08:57 CONCLUSION: 1. There is a dissection involving the mid portion of the left internal carotid artery with a subintimal hematoma causing compression of the lumen for approximately 2 cm in length. There is reconstitution of the distal left internal carotid artery just below the base of the skull. 2. The rest the examination is within normal limits for patient's age. Head MRI 06/12/18 12:17 CONCLUSION: 1. There are several punctate areas of restricted diffusion throughout the left cerebral hemisphere characteristic for focal areas of acute infarction. 2. The ventricles are prominent bilaterally. There is also evidence of ischemic demyelinization bilaterally. I discussed this case with [facility] neurologist, dr Pryor in detail. The patient has a left carotid dissection of idiopathic nature, which extends about 2-1/2 inches up to the base of the skull and then disappears. In addition, he has several punctate hemorrhages in the left cerebral hemisphere on MRI while the CTA does not show any abnormalities. I reviewed the patient's echocardiogram as well as electrocardiogram aswell. His hydrocephalus is incidental and chronic. At this point, therapy recommended for this is anticoagulation followed by p.o. anticoagulants. Most of patients will have no symptoms in the future and a few months later the carotid artery appears to be normal and barely visible thickening where the dissection occurred. Therefore, he is not a candidate for surgery, lumbar drain placement, or a shunt The reason for dissections are unclear.I agree with Neurology on the treatment of this patient. Blood pressure should be kept below 140 mmHg. Daily PT and OT Renal: Continue to monitor closely urine output, BUN and creatinine Endocrine: Continue to Monitor serial Acu checks and SSI as needed in detail ID continue to monitor for signs of infection Continue Protonix for stress ulcer prophylaxis Continue Venancio jurado and SCD's for DVT prophylaxis Discussed the case with the vascular surgeon as well
[2018-06-15] MEDS: Heparin Drip 25,000 UNIT/250 ML BAG IV.CONT PRN ×2 (01:52→21:33)
[2018-06-15 04:44] LABS: Hematocrit 43.8 % (39.0-51.0); Hemoglobin 14.6 gm/dL (13.0-17.0); Mean Corpuscular HGB Conc 33.3 % (32.0-36.0); Mean Corpuscular Hemoglobin 28.4 pg (27.0-34.0); Mean Corpuscular Volume 85.2 fL (80.0-100.0); Mean Platelet Volume 8.1 fL (7.0-11.0); Platelet Count 249 th/mm3 (150-450); Red Blood Count 5.14 mil/mm3 (4.50-5.90); Red Cell Distribution Width 13.8 % (11.6-17.2); White Blood Count 7.4 th/mm3 (4.0-11.0)
[2018-06-15 05:06] LABS: Calcium 8.8 mg/dL (8.5-10.1); Carbon Dioxide 26.3 meq/L (21.0-32.0); Potassium 3.5 meq/L (3.5-5.1)
[2018-06-15] MEDS: Chlorhexidine Gluconate 2% 1 Pack (2 Cloths) TOPICAL SCH (05:13)
[2018-06-15 05:23] LABS: Activated Partial Thrombo Time 48.9 sec (24.3-30.1); INR 1.2 Ratio; Prothrombin Time 12.1 sec (9.8-11.6)
[2018-06-15] MEDS: Labetalol 100 MG Tablet PO SCH ×3 (06:12→21:32)
--- NOTE | 2018-06-15 09:09 | P.PNIM ---
Subjective Interval history: Patient reports no complaints overnight. 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 Physical Exam Vital signs: Vital Signs 06/14/18 12:00 06/14/18 16:00 06/14/18 18:00 Temperature 98.6 F 98.6 F Pulse Rate 69 68 72 Respiratory Rate 18 18 Blood Pressure 120/71 130/68 Pulse Oximetry 95 96 06/14/18 20:00 06/14/18 20:44 06/15/18 00:00 Temperature 98.3 F 98 F Pulse Rate 76 64 Respiratory Rate 16 16 Blood Pressure 130/70 117/62 Pulse Oximetry 96 97 95 06/15/18 04:00 Temperature 97.8 F Pulse Rate 65 Respiratory Rate 16 Blood Pressure 110/65 Pulse Oximetry 99 Intake & Output 06/14/18 06/15/18 06/15/18 18:59 06:59 18:59 Intake Total 600 / 600 730 / 730 Output Total 400 / 400 Balance 600 / 600 330 / 330 Weight 83.7 kg Intake: IV 250 / 250 Heparin/D5W 25,000 U/250 mL 25, 250 / 250 000 unit In 250 ml @ 1,000 UNITS/HR 10 mls/hr IV.CONT TITRATE PRN Rx#:[id number] Oral 600 / 600 480 / 480 Output: Urine 400 / 400 Other: Post Void Residual 800 # Bowel Movements 3 0 Narrative: GENERAL: This is a well-nourished, well-developed patient, in no apparent distress. CARDIOVASCULAR: Regular rate and rhythm without murmurs, gallops, or rubs. RESPIRATORY: Clear to auscultation. Breath sounds equal bilaterally. No wheezes , rales, or rhonchi. GASTROINTESTINAL: Abdomen soft, non-tender, nondistended. Normal active bowel sounds MUSCULOSKELETAL: Extremities without clubbing, cyanosis, or edema. NEURO: Alert & Oriented x4 to person, place, time, situation. Moves all ext x4 Results - Labs CBC & Chem 7: 06/15/18 03:57 06/15/18 03:57 Laboratory Results - last 24 hr 06/14/18 06/15/18 06/15/18 20:27 03:57 03:57 WBC 7.4 RBC 5.14 Hgb 14.6 Hct 43.8 MCV 85.2 MCH 28.4 MCHC 33.3 RDW 13.8 Plt Count 249 MPV 8.1 PT INR APTT Sodium 141 Potassium 3.5 Chloride 105 Carbon Dioxide 26.3 Anion Gap 10 BUN 12 Creatinine 0.96 Estimated GFR 88 L POC Glucose 122 H Random Glucose 88 Calcium 8.8 06/15/18 06/15/18 03:57 08:40 WBC RBC Hgb Hct MCV MCH MCHC RDW Plt Count MPV PT 12.1 H INR 1.2 APTT 48.9 H Sodium Potassium Chloride Carbon Dioxide Anion Gap BUN Creatinine Estimated GFR POC Glucose 92 Random Glucose Calcium Assessment and Plan - Plan 37-year-old male with an unremarkable past medical history, with risk factors positive for tobacco use, who presents with 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 Stable. needs to be appropriately coumadinized prior to discharge back to home in [place]. Acute spontaneous left ICA dissection - heparin drip transitioning to coumadin (with pharmacy dosing assistance) INR currently 1.2 - vascular surgery consultation to follow along, but non-operative management is recommended. - goal sbp < 140 - prn labetalol Coumadin education provided. given extra dose of 5 mg Coumadin today for a total of 10 mg today Hypertension - goal sbp < 140, currently blood pressure is well controlled. - start labetalol 100mg po q8h - continue prn iv labetalol Acute CVA - 2d echo: normal ef, no wall motion or significant valvular lesions. - stroke navigator - neurology consult: Dr. Pryor has cleared the patient when INR is greater than 2.0 - cardiac diet as tolerated - anticoagulation DVT prophylaxisheparin and Coumadin
[2018-06-15] MEDS: Famotidine 20 MG Tablet PO SCH ×2 (10:01→21:30)
[2018-06-15] MEDS: Senna/Docusate Sodium 8.6/50 MG Tablet PO SCH ×2 (10:01→21:30)
[2018-06-15] MEDS: Insulin NovoLOG Aspart Correctional Sugar Inj SQ SCH ×3 (10:02→17:09)
[2018-06-16] MEDS: Insulin NovoLOG Aspart Correctional Sugar Inj SQ SCH ×5 (05:04→20:27)
[2018-06-16] MEDS: Chlorhexidine Gluconate 2% 1 Pack (2 Cloths) TOPICAL SCH (05:04)
[2018-06-16] MEDS: Labetalol 100 MG Tablet PO SCH ×3 (05:30→20:20)
[2018-06-16 07:11] LABS: Hematocrit 44.5 % (39.0-51.0); Mean Corpuscular HGB Conc 33.7 % (32.0-36.0); Mean Corpuscular Hemoglobin 28.9 pg (27.0-34.0); Mean Corpuscular Volume 85.8 fL (80.0-100.0); Mean Platelet Volume 8.2 fL (7.0-11.0); Platelet Count 249 th/mm3 (150-450); Red Blood Count 5.19 mil/mm3 (4.50-5.90); Red Cell Distribution Width 14.1 % (11.6-17.2); White Blood Count 6.5 th/mm3 (4.0-11.0)
[2018-06-16 07:13] LABS: INR 1.6 Ratio; Prothrombin Time 16.3 sec (9.8-11.6)
[2018-06-16 07:22] LABS: Activated Partial Thrombo Time 64.4 sec (24.3-30.1)
[2018-06-16 07:36] LABS: Calcium 9.2 mg/dL (8.5-10.1); Carbon Dioxide 26.9 meq/L (21.0-32.0); Potassium 3.8 meq/L (3.5-5.1)
--- NOTE | 2018-06-16 08:49 | P.PNIM ---
Subjective Interval history: Still getting some of his fine motor skills back on the right hand. No other concerns at this time. He does want to have further education on his diet while he is taking Coumadin. No other symptoms of headache, numbness. No difficulty with swallowing. Physical Exam Vital signs: Vital Signs 06/15/18 11:35 06/15/18 12:00 06/15/18 15:55 Temperature 98.4 F Pulse Rate 86 72 59 L Respiratory Rate 17 Blood Pressure 124/68 Pulse Oximetry 96 06/15/18 16:00 06/15/18 20:00 06/15/18 22:00 Temperature 98.6 F 98.6 F 98.3 F Pulse Rate 78 77 77 Respiratory Rate 17 18 18 Blood Pressure 115/80 115/71 135/92 H Pulse Oximetry 99 98 94 L 06/16/18 00:00 06/16/18 04:00 Temperature 97.4 F L Pulse Rate 60 57 L Respiratory Rate 18 Blood Pressure 120/77 Pulse Oximetry 91 L Intake & Output 06/15/18 06/16/18 06/16/18 18:59 06:59 18:59 Intake Total 480 / 480 370 / 370 Output Total 1200 / 1200 300 / 300 Balance -720 / -720 70 / 70 Weight 84.1 kg Intake: IV 250 / 250 Heparin/D5W 25,000 U/250 mL 25, 250 / 250 000 unit In 250 ml @ 1,000 UNITS/HR 10 mls/hr IV.CONT TITRATE PRN Rx#:[id number] Oral 480 / 480 120 / 120 Output: Urine 1200 / 1200 300 / 300 Other: # Voids 1 # Bowel Movements 0 Narrative: GENERAL: This is a well-nourished, well-developed patient, in no apparent distress. CARDIOVASCULAR: Regular rate and rhythm without murmurs, gallops, or rubs. RESPIRATORY: Clear to auscultation. Breath sounds equal bilaterally. No wheezes , rales, or rhonchi. GASTROINTESTINAL: Abdomen soft, non-tender, nondistended. Normal active bowel sounds MUSCULOSKELETAL: Extremities without clubbing, cyanosis, or edema. NEURO: Alert & Oriented x4 to person, place, time, situation. Moves all ext x4 Results - Labs CBC & Chem 7: 06/16/18 06:12 06/16/18 06:12 Laboratory Results - last 24 hr 06/15/18 06/15/18 06/15/18 08:40 11:54 17:09 WBC RBC Hgb Hct MCV MCH MCHC RDW Plt Count MPV PT INR APTT Sodium Potassium Chloride Carbon Dioxide Anion Gap BUN Creatinine Estimated GFR POC Glucose 92 115 H 82 Random Glucose Calcium Nasal Screen MRSA (PCR) 06/15/18 06/15/18 06/16/18 21:32 23:55 06:12 WBC 6.5 RBC 5.19 Hgb 15.0 Hct 44.5 MCV 85.8 MCH 28.9 MCHC 33.7 RDW 14.1 Plt Count 249 MPV 8.2 PT INR APTT Sodium Potassium Chloride Carbon Dioxide Anion Gap BUN Creatinine Estimated GFR POC Glucose 89 Random Glucose Calcium Nasal Screen MRSA (PCR) Not detected 06/16/18 06/16/18 06/16/18 06:12 06:12 07:58 WBC RBC Hgb Hct MCV MCH MCHC RDW Plt Count MPV PT 16.3 H INR 1.6 APTT 64.4 H D Sodium 141 Potassium 3.8 Chloride 107 Carbon Dioxide 26.9 Anion Gap 7 BUN 10 Creatinine 0.97 Estimated GFR 87 L POC Glucose 86 Random Glucose 87 Calcium 9.2 Nasal Screen MRSA (PCR) Assessment and Plan - Plan 37-year-old male with an unremarkable past medical history, with risk factors positive for tobacco use, who presents with 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 Stable. needs to be appropriately coumadinized prior to discharge back to home in [place]. Acute spontaneous left ICA dissection - heparin drip transitioning to coumadin (with pharmacy dosing assistance) INR currently 1.6 - vascular surgery consultation to follow along, but non-operative management is recommended. - goal sbp < 140 - prn labetalol Coumadin education provided. given extra dose of 2.5 mg Coumadin today for a total of 5 mg today Dietitian consult for further education continue low fat heart healthy diet along with diet education concerning taking Coumadin medication. Hypertension - goal sbp < 140, currently blood pressure is well controlled. - start labetalol 100mg po q8h - continue prn iv labetalol Acute CVA - 2d echo: normal ef, no wall motion or significant valvular lesions. - stroke navigator - neurology consult: Dr. Pryor has cleared the patient when INR is greater than 2.0 - cardiac diet as tolerated - anticoagulation DVT prophylaxisheparin and Coumadin Discharge Planning: Discharge to home when INR greater than 2.0
[2018-06-16] MEDS: Famotidine 20 MG Tablet PO SCH ×2 (09:51→20:20)
[2018-06-16] MEDS: Senna/Docusate Sodium 8.6/50 MG Tablet PO SCH ×2 (09:51→20:20)
[2018-06-16] MEDS: Heparin Drip 25,000 UNIT/250 ML BAG IV.CONT PRN (20:22)
[2018-06-17] MEDS: Chlorhexidine Gluconate 2% 1 Pack (2 Cloths) TOPICAL SCH (04:23)
[2018-06-17] MEDS: Labetalol 100 MG Tablet PO SCH ×3 (04:36→22:15)
[2018-06-17 07:07] LABS: Hematocrit 44.2 % (39.0-51.0); Hemoglobin 14.9 gm/dL (13.0-17.0); Mean Corpuscular HGB Conc 33.8 % (32.0-36.0); Mean Corpuscular Hemoglobin 28.9 pg (27.0-34.0); Mean Corpuscular Volume 85.5 fL (80.0-100.0); Mean Platelet Volume 8.6 fL (7.0-11.0); Platelet Count 242 th/mm3 (150-450); Red Blood Count 5.17 mil/mm3 (4.50-5.90); Red Cell Distribution Width 14.2 % (11.6-17.2); White Blood Count 6.9 th/mm3 (4.0-11.0)
[2018-06-17 07:14] LABS: INR 1.8 Ratio; Prothrombin Time 18.3 sec (9.8-11.6)
[2018-06-17 07:33] LABS: Calcium 9.1 mg/dL (8.5-10.1); Carbon Dioxide 27.5 meq/L (21.0-32.0); Potassium 3.7 meq/L (3.5-5.1)
[2018-06-17] MEDS: Famotidine 20 MG Tablet PO SCH ×2 (09:13→22:15)
[2018-06-17] MEDS: Senna/Docusate Sodium 8.6/50 MG Tablet PO SCH ×2 (09:13→22:15)
[2018-06-17] MEDS: Insulin NovoLOG Aspart Correctional Sugar Inj SQ SCH ×4 (09:15→22:16)
--- NOTE | 2018-06-17 10:35 | P.PNIM ---
Subjective Interval history: This is a 37-year-old male with no past medical history who was traveling on vacation down from [place] when yesterday he had sudden onset visual field deficits and could not see out of his left eye. He does state that approximately 2 days earlier he had significant alcohol intake with friends, and thought this was related to a hangover. He drinks 6-8 glasses of water and felt that his vision changes improved. Today he had persistent intermittent weakness over his right side of his body and was concerned so he came in for evaluation. CTA head neck demonstrates a left-sided spontaneous internal carotid artery dissection, and MRI brain demonstrates multiple tiny embolic appearing infarcts in the left cortical hemisphere. Currently, the patient denies any symptoms. He states his vision changes have completely resolved. He denies any weakness, sensory changes, imbalance, dizziness, syncope. He has never had anything like this. He denies any family history of stroke. Review of systems is otherwise unremarkable. Of note, he does not work out or lift weights, has not had any recent trauma to the neck or had any other strenuous activity. Subjective: 06/13: no neuro changes. hgb stable. received first dose of coumadin last night. denies complaints. wants to go home. ROS negative. 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 We able to text better on his cell phone. 7- Patient reports no complaints overnight. 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 7-22 Still getting some of his fine motor skills back on the right hand. No other concerns at this time. He does want to have further education on his diet while he is taking Coumadin. No other symptoms of headache, numbness. No difficulty with swallowing. 7-23 NOT THERAPEUTIC ON HIS INR YET ONLY 1.8 GIVE MORE COUMADIN TODAY AM INR GOAL 2.0 TO 3.0 DW RN AND PT HOPEFULLY HOME IN NEXT 24 TO 48 HOURS We will give 5 mg of p.o. Coumadin today Physical Exam Vital signs: Vital Signs 06/16/18 12:00 06/16/18 15:44 06/16/18 16:00 Temperature 98.4 F 97.9 F Pulse Rate 72 68 Respiratory Rate 18 18 Blood Pressure 124/77 120/79 Pulse Oximetry 97 97 98 06/16/18 17:00 06/16/18 20:00 06/17/18 00:00 Temperature 98.2 F 98.2 F Pulse Rate 65 75 67 Respiratory Rate 18 18 Blood Pressure 121/79 121/79 Pulse Oximetry 95 95 06/17/18 01:00 06/17/18 05:00 06/17/18 06:00 Temperature 97.1 F L 97.9 F 97.9 F Pulse Rate 70 83 83 Respiratory Rate 18 18 18 Blood Pressure 122/91 H 127/84 127/84 Pulse Oximetry 97 98 98 06/17/18 08:00 Temperature 98.3 F Pulse Rate 79 Respiratory Rate 16 Blood Pressure 110/62 Pulse Oximetry 97 Intake & Output 06/16/18 06/17/18 06/17/18 18:59 06:59 18:59 Intake Total 770 / 770 840 / 840 Output Total 2300 / 2300 2400 / 2400 Balance -1530 / -1530 -1560 / -1560 Intake: IV 250 / 250 Heparin/D5W 25,000 U/250 mL 25, 250 / 250 000 unit In 250 ml @ 1,000 UNITS/HR 10 mls/hr IV.CONT TITRATE PRN Rx#:[id number] Oral 520 / 520 840 / 840 Output: Urine 2300 / 2300 2400 / 2400 Other: # Voids 4 # Bowel Movements 1 Narrative: GENERAL: Awake alert and oriented 3 talkative and cooperative SKIN: Warm and dry. HEAD: Atraumatic. Normocephalic. EYES: Pupils equal and round. No scleral icterus. No injection or drainage. Extraocular muscles intact ENT: No nasal bleeding or discharge. Mucous membranes pink and moist. Tongue is midline NECK: Trachea midline. No JVD. Supple CARDIOVASCULAR: Regular rate and rhythm. S1-S2 no S3 or S4 RESPIRATORY: No accessory muscle use. Clear to auscultation. Breath sounds equal bilaterally. GASTROINTESTINAL: Abdomen soft, non-tender, nondistended. Hepatic and splenic margins not palpable. MUSCULOSKELETAL: Extremities without clubbing, cyanosis, or edema. No obvious deformities. NEUROLOGICAL: Awake and alert. No obvious cranial nerve deficits. Motor grossly within normal limits. 4 out of 5 muscle strength in the arms and legs. Normal speech. PSYCHIATRIC: Appropriate mood and affect; insight and judgment normal. Results - Labs CBC & Chem 7: 06/17/18 06:10 06/17/18 06:10 Laboratory Results - last 24 hr 06/16/18 06/16/18 06/16/18 12:29 17:22 20:22 WBC RBC Hgb Hct MCV MCH MCHC RDW Plt Count MPV PT INR APTT Sodium Potassium Chloride Carbon Dioxide Anion Gap BUN Creatinine Estimated GFR POC Glucose 96 91 133 H Random Glucose Calcium 06/17/18 06/17/18 06/17/18 06:10 06:10 06:10 WBC 6.9 RBC 5.17 Hgb 14.9 Hct 44.2 MCV 85.5 MCH 28.9 MCHC 33.8 RDW 14.2 Plt Count 242 MPV 8.6 PT 18.3 H INR 1.8 APTT Sodium 141 Potassium 3.7 Chloride 107 Carbon Dioxide 27.5 Anion Gap 7 BUN 13 Creatinine 0.95 Estimated GFR 89 POC Glucose Random Glucose 84 Calcium 9.1 06/17/18 06/17/18 06:10 07:38 WBC RBC Hgb Hct MCV MCH MCHC RDW Plt Count MPV PT INR APTT 47.9 H D Sodium Potassium Chloride Carbon Dioxide Anion Gap BUN Creatinine Estimated GFR POC Glucose 86 Random Glucose Calcium Microbiology 06/16/18 Unknown Stool Stool Occult Blood (SELENA) - Final Hemoccult negative - Imaging Chest X-Ray 06/12/18 08:55 CONCLUSION: No acute intrathoracic disease. Head CT 06/12/18 08:55 CONCLUSION: 1. Mild diffuse ventriculomegaly out of proportion to brain density. Head CTA 06/12/18 08:55 CONCLUSION: 1. 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 2. Otherwise unremarkable CTA of the brain. Neck CTA 06/12/18 08:57 CONCLUSION: 1. There is a dissection involving the mid portion of the left internal carotid artery with a subintimal hematoma causing compression of the lumen for approximately 2 cm in length. There is reconstitution of the distal left internal carotid artery just below the base of the skull. 2. The rest the examination is within normal limits for patient's age. Head MRI 06/12/18 12:17 CONCLUSION: 1. There are several punctate areas of restricted diffusion throughout the left cerebral hemisphere characteristic for focal areas of acute infarction. 2. The ventricles are prominent bilaterally. There is also evidence of ischemic demyelinization bilaterally. 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 Stable. needs to be appropriately coumadinized prior to discharge back to home in [place]. Acute spontaneous left ICA dissection - heparin drip transitioning to coumadin (with pharmacy dosing assistance) INR currently 1.8 - vascular surgery consultation to follow along, but non-operative management is recommended. - goal sbp < 140 - prn labetalol Coumadin education provided. We will give Coumadin 5 more milligrams today Dietitian consult for further education continue low fat heart healthy diet along with diet education concerning taking Coumadin medication. Hypertension - goal sbp < 140, currently blood pressure is well controlled. - start labetalol 100mg po q8h - continue prn iv labetalol Acute CVA - 2d echo: normal ef, no wall motion or significant valvular lesions. - stroke navigator - neurology consult: Dr. Pryor has cleared the patient when INR is greater than 2.0 - cardiac diet as tolerated - anticoagulation DVT prophylaxisheparin and Coumadin Discharge Planning: Discharge to home when INR greater than 2.0 Code Status: Full code Discussed Condition With: RN and patient Discharge Planning: His INR needs to be 2.0 to [facility] we will give extra Coumadin today hopefully discharge in next 24-48 hours when INR is between 2.0 and 3.0
[2018-06-17] MEDS: Heparin Drip 25,000 UNIT/250 ML BAG IV.CONT PRN (18:48)
[2018-06-18 05:13] LABS: Baso % (Auto) 0.4 % (0.0-2.0); Eos # (Auto) 0.1 th/mm3 (0.0-0.4); Eos % (Auto) 1.1 % (0.0-4.0); Hematocrit 44.6 % (39.0-51.0); Lymph # (Auto) 1.4 th/mm3 (1.0-4.8); Lymph % (Auto) 20.3 % (9.0-44.0); Mean Corpuscular HGB Conc 33.7 % (32.0-36.0); Mean Corpuscular Hemoglobin 28.9 pg (27.0-34.0); Mean Corpuscular Volume 85.8 fL (80.0-100.0); Mean Platelet Volume 8.6 fL (7.0-11.0); Mono # (Auto) 0.6 th/mm3 (0.0-0.9); Mono % (Auto) 8.5 % (0.0-8.0); Neut # (Auto) 4.8 th/mm3 (1.8-7.7); Neut % (Auto) 69.7 % (16.0-70.0); Platelet Count 234 th/mm3 (150-450); Red Cell Distribution Width 14.2 % (11.6-17.2); White Blood Count 6.9 th/mm3 (4.0-11.0)
[2018-06-18 05:21] LABS: Activated Partial Thrombo Time 63.8 sec (24.3-30.1); INR 1.8 Ratio; Prothrombin Time 17.9 sec (9.8-11.6)
[2018-06-18] MEDS: Labetalol 100 MG Tablet PO SCH ×3 (05:43→21:48)
[2018-06-18 05:48] LABS: Albumin 3.5 g/dL (3.4-5.0); Anion Gap 9 meq/L (5-15); Aspartate Aminotransferase 47 U/L (15-37); Blood Urea Nitrogen 12 mg/dL (7-18); Calcium 9.1 mg/dL (8.5-10.1); Carbon Dioxide 24.7 meq/L (21.0-32.0); Chloride 105 meq/L (98-107); Glomerular Filtration Rate Greater Than 89 mL/min (>89); Glucose,Random 81 mg/dL (74-106); Magnesium 2.2 mg/dL (1.5-2.5); Potassium 3.8 meq/L (3.5-5.1); Sodium 139 meq/L (136-145)
[2018-06-18 05:59] LABS: Alanine Aminotransferase 81 U/L (12-78); Alkaline Phosphatase 90 U/L (45-117); Free T4 (Free Thyroxine) 1.22 ng/dL (0.76-1.46); Phosphorus 4.1 mg/dL (2.5-4.9); Total Protein 7.5 g/dL (6.4-8.2)
[2018-06-18] MEDS: Insulin NovoLOG Aspart Correctional Sugar Inj SQ SCH ×4 (08:08→21:49)
[2018-06-18] MEDS: Senna/Docusate Sodium 8.6/50 MG Tablet PO SCH ×2 (09:53→21:48)
[2018-06-18] MEDS: Famotidine 20 MG Tablet PO SCH ×2 (09:53→21:47)
--- NOTE | 2018-06-18 10:36 | P.PNIM ---
Subjective Interval history: This is a 37-year-old male with no past medical history who was traveling on vacation down from [place] when yesterday he had sudden onset visual field deficits and could not see out of his left eye. He does state that approximately 2 days earlier he had significant alcohol intake with friends, and thought this was related to a hangover. He drinks 6-8 glasses of water and felt that his vision changes improved. Today he had persistent intermittent weakness over his right side of his body and was concerned so he came in for evaluation. CTA head neck demonstrates a left-sided spontaneous internal carotid artery dissection, and MRI brain demonstrates multiple tiny embolic appearing infarcts in the left cortical hemisphere. Currently, the patient denies any symptoms. He states his vision changes have completely resolved. He denies any weakness, sensory changes, imbalance, dizziness, syncope. He has never had anything like this. He denies any family history of stroke. Review of systems is otherwise unremarkable. Of note, he does not work out or lift weights, has not had any recent trauma to the neck or had any other strenuous activity. Subjective: 06/13: no neuro changes. hgb stable. received first dose of coumadin last night. denies complaints. wants to go home. ROS negative. 7 Reports his right diabetes specialist strength is better and fine motor skills. We able to text better on his cell phone. 7 Patient reports no complaints overnight. Still states his right diabetes specialist strength is getting better. 06-16 Still getting some of his fine motor skills back on the right hand. No other concerns at this time. He does want to have further education on his diet while he is taking Coumadin. No other symptoms of headache, numbness. No difficulty with swallowing. 7 NOT THERAPEUTIC ON HIS INR YET ONLY 1.8 GIVE MORE COUMADIN TODAY AM INR GOAL 2.0 TO 3.0 DW RN AND PT HOPEFULLY HOME IN NEXT 24 TO 48 HOURS We will give 5 mg of p.o. Coumadin today 06-18 NOT THERAPEUTIC YET WILL GIVE 7.5 MG OF COUMADIN TODAY AM LABS DC WHEN INR 2.0 TO 3.0 DW RN AND PT AND FAMILY Physical Exam Vital signs: Vital Signs 06/17/18 12:00 06/17/18 16:00 06/17/18 20:00 Temperature 97.9 F 98.2 F 98.1 F Pulse Rate 73 62 64 Respiratory Rate 20 20 18 Blood Pressure 122/83 116/87 125/78 Pulse Oximetry 95 96 97 06/18/18 00:00 06/18/18 04:00 Temperature 98.0 F 98.1 F Pulse Rate 64 66 Respiratory Rate 18 18 Blood Pressure 118/74 121/75 Pulse Oximetry 97 97 Intake & Output 06/17/18 06/18/18 06/18/18 18:59 06:59 18:59 Intake Total 1234 / 1234 240 / 240 Output Total 1200 / 1200 900 / 900 Balance 34 / 34 -660 / -660 Weight 83.5 kg Intake: IV 250 / 250 Heparin/D5W 25,000 U/250 mL 25, 250 / 250 000 unit In 250 ml @ 1,000 UNITS/HR 10 mls/hr IV.CONT TITRATE PRN Rx#:[id number] Oral 840 / 840 240 / 240 Other 144 / 144 Output: Urine 1200 / 1200 900 / 900 Urine/Stool Mix 0 / 0 Other: Post Void Residual 800 # Voids 6 # Bowel Movements 1 Narrative: GENERAL: Awake alert and oriented 3 talkative and cooperative SKIN: Warm and dry. HEAD: Atraumatic. Normocephalic. EYES: Pupils equal and round. No scleral icterus. No injection or drainage. Extraocular muscles intact ENT: No nasal bleeding or discharge. Mucous membranes pink and moist. Tongue is midline NECK: Trachea midline. No JVD. Supple CARDIOVASCULAR: Regular rate and rhythm. S1-S2 no S3 or S4 RESPIRATORY: No accessory muscle use. Clear to auscultation. Breath sounds equal bilaterally. GASTROINTESTINAL: Abdomen soft, non-tender, nondistended. Hepatic and splenic margins not palpable. MUSCULOSKELETAL: Extremities without clubbing, cyanosis, or edema. No obvious deformities. NEUROLOGICAL: Awake and alert. No obvious cranial nerve deficits. Motor grossly within normal limits. 4 out of 5 muscle strength in the arms and legs. Normal speech. PSYCHIATRIC: Appropriate mood and affect; insight and judgment normal. Results - Labs CBC & Chem 7: 06/18/18 03:50 06/18/18 03:50 Laboratory Results - last 24 hr 06/17/18 06/17/18 06/17/18 11:47 16:29 20:03 WBC RBC Hgb Hct MCV MCH MCHC RDW Plt Count MPV Neut % (Auto) Lymph % (Auto) Bailey % (Auto) Eos % (Auto) Baso % (Auto) Neut # (Auto) Lymph # (Auto) Bailey # (Auto) Eos # (Auto) Baso # (Auto) WBC Differential Differential Comment PT INR APTT Sodium Potassium Chloride Carbon Dioxide Anion Gap BUN Creatinine Estimated GFR POC Glucose 100 89 127 H Random Glucose Calcium Phosphorus Magnesium Total Bilirubin AST ALT Alkaline Phosphatase Total Protein Albumin TSH Free T4 06/18/18 06/18/18 06/18/18 03:50 03:50 03:50 WBC 6.9 RBC 5.20 Hgb 15.0 Hct 44.6 MCV 85.8 MCH 28.9 MCHC 33.7 RDW 14.2 Plt Count 234 MPV 8.6 Neut % (Auto) 69.7 Lymph % (Auto) 20.3 Bailey % (Auto) 8.5 H Eos % (Auto) 1.1 Baso % (Auto) 0.4 Neut # (Auto) 4.8 Lymph # (Auto) 1.4 Bailey # (Auto) 0.6 Eos # (Auto) 0.1 Baso # (Auto) 0.0 WBC Differential . Differential Comment Auto diff final PT 17.9 H INR 1.8 APTT 63.8 H D Sodium 139 Potassium 3.8 Chloride 105 Carbon Dioxide 24.7 Anion Gap 9 BUN 12 Creatinine 0.92 Estimated GFR Greater than 89 POC Glucose Random Glucose 81 Calcium 9.1 Phosphorus 4.1 Magnesium 2.2 Total Bilirubin 0.2 AST 47 H ALT 81 H Alkaline Phosphatase 90 Total Protein 7.5 Albumin 3.5 TSH 2.580 Free T4 1.22 06/18/18 08:07 WBC RBC Hgb Hct MCV MCH MCHC RDW Plt Count MPV Neut % (Auto) Lymph % (Auto) Bailey % (Auto) Eos % (Auto) Baso % (Auto) Neut # (Auto) Lymph # (Auto) Bailey # (Auto) Eos # (Auto) Baso # (Auto) WBC Differential Differential Comment PT INR APTT Sodium Potassium Chloride Carbon Dioxide Anion Gap BUN Creatinine Estimated GFR POC Glucose 96 Random Glucose Calcium Phosphorus Magnesium Total Bilirubin AST ALT Alkaline Phosphatase Total Protein Albumin TSH Free T4 - Imaging Chest X-Ray 06/12/18 08:55 CONCLUSION: No acute intrathoracic disease. Head CT 06/12/18 08:55 CONCLUSION: 1. Mild diffuse ventriculomegaly out of proportion to brain density. Head CTA 06/12/18 08:55 CONCLUSION: 1. 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 2. Otherwise unremarkable CTA of the brain. Neck CTA 06/12/18 08:57 CONCLUSION: 1. There is a dissection involving the mid portion of the left internal carotid artery with a subintimal hematoma causing compression of the lumen for approximately 2 cm in length. There is reconstitution of the distal left internal carotid artery just below the base of the skull. 2. The rest the examination is within normal limits for patient's age. Head MRI 06/12/18 12:17 CONCLUSION: 1. There are several punctate areas of restricted diffusion throughout the left cerebral hemisphere characteristic for focal areas of acute infarction. 2. The ventricles are prominent bilaterally. There is also evidence of ischemic demyelinization bilaterally. 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 Stable. needs to be appropriately coumadinized prior to discharge back to home in [place]. Acute spontaneous left ICA dissection - heparin drip transitioning to coumadin (with pharmacy dosing assistance) INR currently 1.8 - vascular surgery consultation to follow along, but non-operative management is recommended. - goal sbp < 140 - prn labetalol Coumadin education provided. We will give Coumadin 5 more milligrams today Dietitian consult for further education continue low fat heart healthy diet along with diet education concerning taking Coumadin medication. WILL GIVE 7.5 MG PO TODAY Hypertension - goal sbp < 140, currently blood pressure is well controlled. - start labetalol 100mg po q8h - continue prn iv labetalol Acute CVA - 2d echo: normal ef, no wall motion or significant valvular lesions. - stroke navigator - neurology consult: Dr. Pryor has cleared the patient when INR is greater than 2.0 - cardiac diet as tolerated - anticoagulation DVT prophylaxisheparin and Coumadin Discharge Planning: Discharge to home when INR greater than 2.0 Code Status: FULL CODE Discussed Condition With: RN AND PT AND FAMILY AND CM Discharge Planning: His INR needs to be 2.0 to [facility] we will give extra Coumadin today hopefully discharge in next 24-48 hours when INR is between 2.0 and 3.0
[2018-06-18] MEDS: Heparin Drip 25,000 UNIT/250 ML BAG IV.CONT PRN (16:56)
[2018-06-18 17:38] LABS: Hemoglobin A1c 5.4 % (4.3-6.0)
[2018-06-19] MEDS: Labetalol 100 MG Tablet PO SCH (06:30)
[2018-06-19] MEDS: Famotidine 20 MG Tablet PO SCH (08:06)
[2018-06-19] MEDS: Insulin NovoLOG Aspart Correctional Sugar Inj SQ SCH (08:07)
[2018-06-19] MEDS: Senna/Docusate Sodium 8.6/50 MG Tablet PO SCH (08:08)
--- NOTE | 2018-06-19 09:04 | P.DS ---
Date of admission: 06/12/18 13:07 Primary care physician: No Primary Care Physician Anticipated date of discharge: 06/19/18 Brief History from admission: This is a 37-year-old male with no past medical history who was traveling on vacation down from [place] when yesterday he had sudden onset visual field deficits and could not see out of his left eye. He does state that approximately 2 days earlier he had significant alcohol intake with friends, and thought this was related to a hangover. He drinks 6-8 glasses of water and felt that his vision changes improved. Today he had persistent intermittent weakness over his right side of his body and was concerned so he came in for evaluation. CTA head neck demonstrates a left-sided spontaneous internal carotid artery dissection, and MRI brain demonstrates multiple tiny embolic appearing infarcts in the left cortical hemisphere. Currently, the patient denies any symptoms. He states his vision changes have completely resolved. He denies any weakness, sensory changes, imbalance, dizziness, syncope. He has never had anything like this. He denies any family history of stroke. Review of systems is otherwise unremarkable. Of note, he does not work out or lift weights, has not had any recent trauma to the neck or had any other strenuous activity. 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 Stable. needs to be appropriately coumadinized prior to discharge back to home in [place]. Acute spontaneous left ICA dissection - heparin drip transitioning to coumadin (with pharmacy dosing assistance) INR currently pending and will discharge patient to home if INR is greater than 2.0. - vascular surgery consultation to follow along, but non-operative management is recommended. - goal sbp < 140 - prn labetalol Coumadin education provided. given extra dose of 2.5 mg Coumadin today for a total of 7.5 mg today Dietitian consult for further education continue low fat heart healthy diet along with diet education concerning taking Coumadin medication. Hypertension - goal sbp < 140, currently blood pressure is well controlled. - continue labetalol 100mg po q8h - continue prn iv labetalol Acute CVA - 2d echo: normal EF, no wall motion or significant valvular lesions. - stroke navigator and education provided - neurology consult: Dr. Pryor has cleared the patient when INR is greater than 2.0 - cardiac diet as tolerated - anticoagulation DVT prophylaxisheparin and Coumadin - Time Spent with Patient Total time spent providing and/or coordinating discharge services: Less than 30 minutes Exam Vital signs: Vital Signs 06/18/18 12:00 06/18/18 16:00 06/18/18 20:00 Temperature 98.5 F 98.0 F 97.8 F Pulse Rate 74 68 66 Respiratory Rate 20 20 18 Blood Pressure 122/70 128/65 128/81 Pulse Oximetry 96 97 95 06/18/18 22:00 06/19/18 00:00 06/19/18 04:00 Temperature 97.8 F 97.2 F L Pulse Rate 69 61 66 Respiratory Rate 18 18 Blood Pressure 115/65 113/67 Pulse Oximetry 97 98 06/19/18 08:04 Temperature Pulse Rate Respiratory Rate Blood Pressure Pulse Oximetry 97 Intake & Output 06/18/18 06/19/18 06/19/18 18:59 06:59 18:59 Intake Total 850 / 850 240 / 240 Output Total 1150 / 1150 1200 / 1200 Balance -300 / -300 -960 / -960 Weight 81.5 kg Intake: IV 250 / 250 Heparin/D5W 25,000 U/250 mL 25, 250 / 250 000 unit In 250 ml @ 1,000 UNITS/HR 10 mls/hr IV.CONT TITRATE PRN Rx#:[id number] Oral 600 / 600 240 / 240 Output: Urine 1150 / 1150 1200 / 1200 Other: # Bowel Movements 1 0 Results Procedures completed during hospitalization: None Labs on day of discharge: Labs from last 24 hours 06/19/18 06/18/18 06/18/18 07:50 20:40 16:52 POC Glucose 83 110 88 Hemoglobin A1c 06/18/18 06/18/18 12:16 03:50 POC Glucose 82 Hemoglobin A1c 5.4 - Impressions ITS Impressions Chest X-Ray 06/12/18 08:55 CONCLUSION: No acute intrathoracic disease. Head CT 06/12/18 08:55 CONCLUSION: 1. Mild diffuse ventriculomegaly out of proportion to brain density. Head CTA 06/12/18 08:55 CONCLUSION: 1. 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 2. Otherwise unremarkable CTA of the brain. Neck CTA 06/12/18 08:57 CONCLUSION: 1. There is a dissection involving the mid portion of the left internal carotid artery with a subintimal hematoma causing compression of the lumen for approximately 2 cm in length. There is reconstitution of the distal left internal carotid artery just below the base of the skull. 2. The rest the examination is within normal limits for patient's age. Head MRI 06/12/18 12:17 CONCLUSION: 1. There are several punctate areas of restricted diffusion throughout the left cerebral hemisphere characteristic for focal areas of acute infarction. 2. The ventricles are prominent bilaterally. There is also evidence of ischemic demyelinization bilaterally. Discharge Plan - Discharge Disposition Patient Disposition: 01 Discharge Home - Discharge Condition Condition: Critical - Discharge Order Discharge Orders: Discharge Order (Routine); Ordered 06/19/18 Ordered By: Kristin Boyd - Discharge Details Anticipated Discharge Date: 06/19/18 - Physicians Team Primary Care Provider: Primary Care Farzana Lopez Attending Provider: Kristin Boyd Other Providers: Kait Laughlin MD ; Maynor Pryor MD ; Gene Luz MD
[2018-06-19 10:10] LABS: Baso % (Auto) 0.5 % (0.0-2.0); Eos # (Auto) 0.1 th/mm3 (0.0-0.4); Eos % (Auto) 0.9 % (0.0-4.0); Hematocrit 45.7 % (39.0-51.0); Hemoglobin 15.7 gm/dL (13.0-17.0); Lymph # (Auto) 1.1 th/mm3 (1.0-4.8); Mean Corpuscular HGB Conc 34.4 % (32.0-36.0); Mean Corpuscular Hemoglobin 29.5 pg (27.0-34.0); Mean Corpuscular Volume 85.7 fL (80.0-100.0); Mean Platelet Volume 8.6 fL (7.0-11.0); Mono # (Auto) 0.5 th/mm3 (0.0-0.9); Mono % (Auto) 8.3 % (0.0-8.0); Neut # (Auto) 4.2 th/mm3 (1.8-7.7); Neut % (Auto) 72.3 % (16.0-70.0); Platelet Count 264 th/mm3 (150-450); Red Blood Count 5.33 mil/mm3 (4.50-5.90); Red Cell Distribution Width 14.2 % (11.6-17.2); White Blood Count 5.9 th/mm3 (4.0-11.0)
[2018-06-19 10:24] LABS: Activated Partial Thrombo Time 75.2 sec (24.3-30.1); INR 2.1 Ratio; Prothrombin Time 20.8 sec (9.8-11.6)
[2018-06-19 10:32] LABS: Potassium 4.1 meq/L (3.5-5.1); Sodium 140 meq/L (136-145)
[2018-06-19 10:33] LABS: Anion Gap 8 meq/L (5-15); Blood Urea Nitrogen 10 mg/dL (7-18); Carbon Dioxide 27.8 meq/L (21.0-32.0); Chloride 104 meq/L (98-107); Glomerular Filtration Rate Greater Than 89 mL/min (>89); Glucose,Random 83 mg/dL (74-106)
[2018-06-19 10:34] LABS: Alanine Aminotransferase 118 U/L (12-78); Albumin 3.8 g/dL (3.4-5.0); Alkaline Phosphatase 97 U/L (45-117); Aspartate Aminotransferase 67 U/L (15-37); Calcium 9.5 mg/dL (8.5-10.1); Magnesium 2.3 mg/dL (1.5-2.5); Phosphorus 3.9 mg/dL (2.5-4.9); Total Protein 8.2 g/dL (6.4-8.2)
== END 2018-06-19 10:50 | disposition home or self-care (01) ==
LOC: NEPC 08:24 → NEDA 13:07 → HCVI 15:44 → N04 06-13 19:08
PROVIDERS: ADMIT Family Medicine; ATTEND Family Medicine